=== PATIENT | female | born 1930 | race Caucasian/White ===

== ENCOUNTER → 2017-03-31 | Outpatient (CLI) | payer MEDICARE ==
[~2017-03-31] VITALS: Ht 167.6 cm; Wt 71.8 kg
[~2017-03-31] MED LIST: ACET-461 PO; ALN70T PO; ASCO500T20 PO; CALC-656 PO; CALC-80 PO; CLOP75TA PO; CSPT25 OU; DENOSUMAB 60 MG/1 ML (PROLIA) SQ ONE; DORZ10DR19; ESCI20TA2 PO; GLUC-174 PO; HYDR25TA4 PO; LISI10TA2 PO; MULT-974 PO; NABUMETONE 500MG PO; NAPR-686 PO; NF-SOLIF5T PO; NFAMINITAB PO; Stool Softner; TRAM-21 PO; TRAM50TA2 PO; TRAV5DRO OP; VIT1TABL26 PO
[2017-03-31 13:27] VITALS: BP 136/52
[2017-03-31 13:50] VITALS: BP 136/52
== END ==
LOC: SDC 13:01
PROVIDERS: ATTEND Family Medicine
DX: M81.0 Age-related osteoporosis without current pathological fracture (principal)
CPT/HCPCS: 96372

== ENCOUNTER 2017-04-14 06:03 | Inpatient (IN) | payer MEDICARE ==
[~2017-04-14] VITALS: Ht 165.1 cm; Wt 66.5 kg
[~2017-04-14 06:03] MED LIST changes: -DENOSUMAB 60 MG/1 ML (PROLIA) SQ ONE
[2017-04-14] MEDS ORDERED: hydrALAZINE (APESOLINE) 20 MG/ML VIAL IV ONE (06:15)
[2017-04-14 06:24] LABS: BASOPHILS % (AUTO) 0 % (0-10); EOSINOPHILS # (AUTO) 0.1 10^3/uL (0.0-0.3); EOSINOPHILS % (AUTO) 1 % (0-10); LYMPHOCYTES # (AUTO) 1.3 X 10^3 (1.0-4.0); LYMPHOCYTES % (AUTO) 19 % (12-44); MEAN CORPUSCULAR HEMOGLOBIN 29 PG (25-34); MEAN CORPUSCULAR HGB CONC 32 G/DL (32-36); MEAN CORPUSCULAR VOLUME 90 FL (80-99); MEAN PLATELET VOLUME 9.5 FL (7.4-10.4); MONOCYTES # (AUTO) 0.8 X 10^3 (0.0-1.0); MONOCYTES % (AUTO) 12 % (0-12); NEUTROPHILS # (AUTO) 4.8 X 10^3 (1.8-7.8); NEUTROPHILS % (AUTO) 68 % (42-75); PLATELET COUNT 279 10^3/uL (130-400); RED BLOOD COUNT 5.52 10^6/uL (4.35-5.85); RED CELL DISTRIBUTION WIDTH 14.5 % (10.0-14.5); WHITE BLOOD COUNT 7.1 10^3/uL (4.3-11.0)
[2017-04-14] MEDS ORDERED: ONDANSETRON 4 MG/2 ML (SDV) Z0FRAN ONE (06:28)
--- NOTE | 2017-04-14 06:29 | ED General ---
General Chief Complaint: Head/Cervical Problems Stated Complaint: headache, hypertension Nursing Triage Note: patient reports headache starting at 0430 with hypertension, patients daughter gave her a lisinopril and tylenol Nursing Sepsis Screen: No Definite Risk Source of Information: Patient, EMS Exam Limitations: No Limitations History of Present Illness Time Seen by Provider: 06:05 Initial Comments Here by EMS with report of headache and hypertension. Patient apparently fell 2 weeks ago but didn't have any sequela from that. Woke up with a headache this morning and ultimately her daughter checked her blood pressure and noted to the greater than 200 systolic. She did get 20 mg lisinopril as well as the Tylenol for her headache. EMS noted the patient felt a little warm. Patient does not describe any recent illness symptoms. Patient is very hard of hearing and not a great historian but denies any specific complaints except for headache. She denies hitting her head when she fell. Timing/Duration: 1-3 Hours Severity: Moderate, Severe Associated Systoms: No Chest Pain, No Cough, Fever/Chills, Headaches, No Nausea /Vomiting, No Shortness of Air, Weakness Allergies and Home Medications Allergies Coded Allergies: No Known Drug Allergies (Unverified , 01/18/14) Home Medications Acetaminophen 500 Mg Tablet, 1,000 MG PO TID-QID PRN for PAIN, (Reported) TAKES 2 (500MG) TABLETS Calcium Carbonate/Vitamin D3 1 Each Tablet, 1 EACH PO DAILY, (Reported) Clopidogrel Bisulfate 75 Mg Tablet, 1 EACH PO DAILY, (Reported) Escitalopram Oxalate 20 Mg Tablet, 0.5 EACH PO DAILY, (Reported) Gluc/Eleazar-MSM#1/C/Get/Caden/Bor 1 Each Tablet, 1 EACH PO DAILY, (Reported) Lisinopril 10 Mg Tablet, 10 MG PO DAILY, (Reported) Solifenacin Succinate 5 Mg Tablet, 5 MG PO HS, (Reported) Timolol Maleate/Dorzolam Hcl 5 Ml Btl, 1 DROP OU TID, (Reported) Tramadol Hcl 50 Mg Tablet, 50 MG PO QID PRN for PAIN, (Reported) NEEDED FOR PAIN Travoprost 5 Ml Drops, 1 DROP OP HS, (Reported) Vit A,C & E/Lutein/Minerals 1 Each Tablet, 1 EACH PO DAILY, (Reported) [Stool Softner] , (Reported) Constitutional: see HPI, No chills, fever, weakness EENTM: no symptoms reported Respiratory: No cough, No short of breath Cardiovascular: No chest pain, No edema, other (history of bradycardia with heart rates typically in the 40s.) Gastrointestinal: No abdominal pain, No nausea, No vomiting Genitourinary: no symptoms reported : No Musculoskeletal: no symptoms reported Skin: lesions (small skin tear and redness to the mid tibia area of the left leg.) Psychiatric/Neurological: Headache, Weakness Hematologic/Lymphatic: No Symptoms Reported All Other Systems Reviewed Negative Unless Noted: Yes Past Zuumfua-Mcmplo-Cunyzt Hx Patient Social History Alcohol Use: Denies Use Recreational Drug Use: No Smoking Status: Never a Smoker Recent Foreign Travel: No Contact w/Someone Who Travel: No Recent Infectious Disease Expo: No Recent Hopitalizations: No Immunizations Up To Date Date of Pneumonia Vaccine: Dec 21, 2009 Seasonal Allergies Seasonal Allergies: No Surgeries HX Surgeries: Yes (see Musculoskelatal assessment) Surgeries: Eye Surgery, Orthopedic Respiratory Hx Respiratory Disorders: No Cardiovascular Hx Cardiac Disorders: Yes Cardiac Disorders: Hypertension Neurological Hx Neurological Disorders: Yes Neurological Disorders: Dementia Reproductive System Hx Reproductive Disorders: No Sexually Transmitted Disease: No HIV/AIDS: No Female Reproductive Disorders: Denies Genitourinary Hx Genitourinary Disorders: No Gastrointestinal Hx Gastrointestinal Disorders: Yes Gastrointestinal Disorders: Chronic Constipation Musculoskeletal Hx Musculoskeletal Disorders: Yes (kyphoplasty l-spine 01/2014, pelvis fx, frequent falls) Musculoskeletal Disorders: Osteoporosis, Arthritis, Chronic Back Pain, Fractures Endocrine Hx Endocrine Disorders: Yes (History of hyponatremia) HEENT HX ENT Disorders: Yes (DETACHED RETINA REPAIR) HEENT Disorders: Glaucoma Hearing Impairment: Hard of Hearing, Hearing Aide Left Cancer Hx Cancer: No Psychosocial Hx Psychiatric Problems: No Integumentary HX Skin/Integumentary Disorder: No Blood Transfusions Hx Blood Disorders: No Adverse Reaction to a Blood Tr: No Reviewed Nursing Assessment Reviewed/Agree w Nursing PMH: Yes Family Medical History Significant Family History: No Pertinent Family Hx Family Medial History: Patient reports no known family medical history. Physical Exam-Suspected Sepsis Physical Exam Vital Signs Vital Sign - Last 12Hours 04/14/17 04/14/17 06:05 06:15 Temp 99.6 Pulse 45 Resp 17 B/P (MAP) 236/87 Pulse Ox 86 O2 Delivery Room Air O2 Flow Rate 3.00 Capillary Refill : Less Than 3 Seconds Blood Pressure Mean: 136 General Appearance: No Apparent Distress, WD/WN HEENT: PERRL/EOMI, Pharynx Normal Neck: Full Range of Motion, Non Tender, Supple Respiratory: Lungs Clear, Normal Breath Sounds Cardiovascular: No Murmur, Bradycardia Gastrointestinal: Non Tender, Soft Back: Normal Inspection, No CVA Tenderness, No Vertebral Tenderness Extremity: Non Tender, No Calf Tenderness Neurologic/Psychiatric: Alert, Oriented x3 Skin: warm/dry, other (appears to have a small skin tear to the left mid tibia region anteriorly of the left lower leg with surrounding erythema.) Focused Exam Lactic Acid Level Laboratory Tests Test 04/14/17 06:15 Lactic Acid Level 1.18 MMOL/L (0.50-2.00) Progress/Results/Core Measures Suspected Sepsis Recent Fever Within 48 Hours: No Infection Criteria Present: None New/Unexplained Altered Menta: No Sepsis Screen: No Definite Risk Sepsis Diagnosis: SIRS Temperature:99.6 Pulse: 45 Respiratory Rate: 17 Laboratory Tests 04/14/17 06:15: White Blood Count 7.1 Blood Pressure 236 /87 Mean: 136 Laboratory Tests 04/14/17 06:15: Creatinine 0.78, INR Comment 1.0, Platelet Count 279, Total Bilirubin 1.1H Results/Orders Lab Results Laboratory Tests Test 04/14/17 06:15 04/14/17 07:15 Range/Units White Blood Count 7.1 4.3-11.0 10^3/uL Red Blood Count 5.52 4.35-5.85 10^6/uL Hemoglobin 15.9 11.5-16.0 G/DL Hematocrit 49 35-52 % Mean Corpuscular Volume 90 80-99 FL Mean Corpuscular Hemoglobin 29 25-34 PG Mean Corpuscular Hemoglobin Concent 32 32-36 G/DL Red Cell Distribution Width 14.5 10.0-14.5 % Platelet Count 279 130-400 10^3/uL Mean Platelet Volume 9.5 7.4-10.4 FL Neutrophils (%) (Auto) 68 42-75 % Lymphocytes (%) (Auto) 19 12-44 % Monocytes (%) (Auto) 12 0-12 % Eosinophils (%) (Auto) 1 0-10 % Basophils (%) (Auto) 0 0-10 % Neutrophils # (Auto) 4.8 1.8-7.8 X 10^3 Lymphocytes # (Auto) 1.3 1.0-4.0 X 10^3 Monocytes # (Auto) 0.8 0.0-1.0 X 10^3 Eosinophils # (Auto) 0.1 0.0-0.3 10^3/uL Basophils # (Auto) 0.0 0.0-0.1 10^3/uL Prothrombin Time 12.8 12.2-14.7 SEC INR Comment 1.0 0.8-1.4 Activated Partial Thromboplast Time 26 24-35 SEC Sodium Level 129 L 135-145 MMOL/L Potassium Level 4.7 3.6-5.0 MMOL/L Chloride Level 93 L 98-107 MMOL/L Carbon Dioxide Level 25 21-32 MMOL/L Anion Gap 11 5-14 MMOL/L Blood Urea Nitrogen 14 7-18 MG/DL Creatinine 0.78 0.60-1.30 MG/DL Estimat Glomerular Filtration Rate > 60 BUN/Creatinine Ratio 18 Glucose Level 114 H 70-105 MG/DL Lactic Acid Level 1.18 0.50-2.00 MMOL/L Calcium Level 9.1 8.5-10.1 MG/DL Total Bilirubin 1.1 H 0.1-1.0 MG/DL Aspartate Amino Transf (AST/SGOT) 23 5-34 U/L Alanine Aminotransferase (ALT/SGPT) 16 0-55 U/L Alkaline Phosphatase 126 40-136 U/L Troponin I < 0.30 <0.30 NG/ML Total Protein 8.1 6.4-8.2 GM/DL Albumin 4.0 3.2-4.5 GM/DL Urine Color YELLOW Urine Clarity CLEAR Urine pH 8 5-9 Urine Specific [place] 1.015 L 1.016-1.022 Urine Protein 3+ H NEGATIVE Urine Glucose (UA) NEGATIVE NEGATIVE Urine Ketones NEGATIVE NEGATIVE Urine Nitrite NEGATIVE NEGATIVE Urine Bilirubin NEGATIVE NEGATIVE Urine Urobilinogen NORMAL NORMAL MG/DL Urine Leukocyte Esterase 1+ H NEGATIVE Urine RBC (Auto) 2+ H NEGATIVE Urine RBC NONE /HPF Urine WBC 5-10 H /HPF Urine Squamous Epithelial Cells 5-10 /HPF Urine Crystals NONE /LPF Urine Bacteria FEW H /HPF Urine Casts NONE /LPF Urine Mucus NEGATIVE /LPF Urine Other RARE TRANS EPI /HPF Urine Culture Indicated YES My Orders Orders - KIM TORRES MD Cbc With Automated Diff (04/14/17 06:13) Comprehensive Metabolic Panel (04/14/17 06:13) Lactic Acid Analyzer (04/14/17 06:13) Blood Culture (04/14/17 06:13) Sputum Culture (04/14/17 06:13) Ua Culture If Indicated (04/14/17 06:13) Protime With Inr (04/14/17 06:13) Partial Thromboplastin Time (04/14/17 06:13) Chest 1 View, Ap/Pa Only (04/14/17 06:13) O2 (04/14/17 06:13) Saline Lock/Iv-Start (04/14/17 06:13) Saline Lock/Iv-Start (04/14/17 06:13) Ekg Tracing (04/14/17 06:13) Troponin I (04/14/17 06:13) Vital Signs Adult Sepsis Patie Q1HR (04/14/17 06:13) Remove Rings In Anticipation O (04/14/17 06:13) Hydralazine Injection (Apresoline Inject (04/14/17 06:15) Ct Head Wo (04/14/17 06:13) Ondansetron Injection (Zofran Injectio (04/14/17 06:28) Ondansetron Injection (Zofran Injectio (04/14/17 06:45) Ondansetron Injection (Zofran Injectio (04/14/17 06:45) Ns Iv 500 Ml (Sodium Chloride 0.9%) (04/14/17 06:52) Ketorolac Injection (Toradol Injection) (04/14/17 07:21) Ketorolac Injection (Toradol Injection) (04/14/17 07:17) Urine Culture (04/14/17 07:15) BNP (04/14/17 07:56) Ceftriaxone Injection (Rocephin Injectio (04/14/17 08:00) Medications Given in ED Current Medications Medications Dose Ordered Sig/Yolanda Route Start Time Stop Time Status Last Admin Dose Admin Hydralazine HCl 20 mg ONCE ONCE IV 04/14/17 06:15 04/14/17 06:16 DC 04/14/17 06:18 20 MG Ondansetron HCl 4 mg ONCE ONCE IVP 04/14/17 06:45 04/14/17 06:46 DC 04/14/17 06:36 4 MG Sodium Chloride 500 ml @ 0 mls/hr Q0M ONCE IV 04/14/17 06:52 04/14/17 06:53 DC 04/14/17 07:00 500 MLS/HR Vital Signs/I&O Vital Sign - Last 12Hours 04/14/17 04/14/17 06:05 06:15 Temp 99.6 Pulse 45 Resp 17 B/P (MAP) 236/87 Pulse Ox 86 93 O2 Delivery Room Air Nasal Cannula O2 Flow Rate 3.00 Capillary Refill : Less Than 3 Seconds Blood Pressure Mean: 136 Progress Note : Progress Note Seen and evaluated. IV established by EMS. Labs, blood culture, lactic acid, UA, chest x-ray and CT head ordered. EKG ordered due to bradycardia and hypertension. Hydralazine 20 mg IV given. Monitor patient. This did improve her blood pressure. UA obtained via straight catheter. UTI noted. Rocephin 1 g IV ordered. Chest x-ray noted. BNP added. Patient not tolerating being off oxygen and has O2 sat 87 percent on room air and 92 percent on 2 L via nasal cannula. I did discuss the case with Dr. Negrete at 0803. She accepts patient for admission, inpatient status. Patient and family agree with plan. ECG Initial ECG Impression Date: Apr 14, 2017 Initial ECG Impression Time: 07:09 Initial ECG Rate: 53 Initial ECG Rhythm: Normal Sinus Comment Sinus rhythm with bradycardia. Left axis deviation. No evidence of ST elevation WI. Similar to previous of 03/03/15. Interpreted by me. Diagnostic Imaging Diagonstic Imaging: CT Plain Films/CT/US/NM/MRI: head Comments No midline shift, hemorrhage or CT evidence of acute cortical infarct. Ventricular size concert with volume loss. No depressed calvarial fractures. Incidental findings noted. Reviewed: Reviewed [place] Study, Reviewed by Me Diagonstic Imaging: Xray Plain Films/CT/US/NM/MRI: chest Comments NAME: [facility] REC#: [id number] PT STATUS: PRE ER : 1930 PHYSICIAN: KIM TORRES MD ADMIT DATE: 04/14/17/ER Draft Date of Exam:04/14/17 CHEST 1 VIEW, AP/PA ONLY EXAM: CHEST 1 VIEW, AP/PA ONLY INDICATION: Hypertension. COMPARISON: Chest radiographs 03/03/2015. FINDINGS: Cardiomegaly and increased pulmonary venous congestion. Low lung volumes. Increased atelectasis in the lung bases. No definite pleural effusion or pneumothorax. The previously described opacity overlying the right midlung is not seen on today's exam. Advanced degenerative changes in both shoulders. Calcified aorta. IMPRESSION: 1. Persistent cardiomegaly and pulmonary venous congestion. 2. Low lung volumes with increased atelectasis in the lung bases. Dictated on workstation # [id number] Dict: 04/14/17 0749 Trans: 04/14/17 0753 [facility] [id number] Interpreted by: MILES LUCAS MD Electronically signed by: Reviewed: Reviewed by Me Departure Communication Time/Spoke to Admitting Phy: 08:03 Impression Impression: Primary Impression: Malignant hypertension Additional Impressions: Hypoxia Pulmonary edema Qualified Codes: J81.0 - Acute pulmonary edema Urinary tract infection Qualified Codes: N30.00 - Acute cystitis without hematuria Disposition: 09 ADMITTED INPATIENT Condition: Stable Decision to Admit Reason: Admit from ER (General) Decision to Admit/Date: Apr 14, 2017 Time/Decision to Admit Time: 08:03 Departure-Patient Inst. Referrals: JOYCE NEGRETE MD (PCP/Family) Primary Care Physician KIM TORRES MD Apr 14, 2017 06:29
[2017-04-14 06:34] LABS: PROTHROMBIN TIME PATIENT 12.8 SEC (12.2-14.7)
[2017-04-14] MEDS ORDERED: ONDANSETRON 4 MG/2 ML (SDV) Z0FRAN IVP ONE ×2 (06:45)
[2017-04-14 06:51] LABS: ALANINE AMINOTRANSFERASE 16 U/L (0-55); ANION GAP 11 MMOL/L (5-14); ASPARTATE AMINO TRANSFERASE 23 U/L (5-34); BILIRUBIN,TOTAL 1.1 MG/DL (0.1-1.0); BLOOD UREA NITROGEN 14 MG/DL (7-18); BUN/CREATININE RATIO 18; CALCIUM 9.1 MG/DL (8.5-10.1); CARBON DIOXIDE 25 MMOL/L (21-32); CHLORIDE 93 MMOL/L (98-107); CREATININE SERUM 0.78 MG/DL (0.60-1.30); GFR ESTIMATED > 60; GLUCOSE 114 MG/DL (70-105); POTASSIUM 4.7 MMOL/L (3.6-5.0); SODIUM 129 MMOL/L (135-145); TOTAL PROTEIN 8.1 GM/DL (6.4-8.2)
[2017-04-14] MEDS ORDERED: NS IV 500 ML 500 ML IV ONE (06:52)
[2017-04-14 07:00] LABS: TROPONIN I < 0.30 NG/ML (<0.30)
[2017-04-14] MEDS ORDERED: KETOROLAC 30 MG/ML VIAL ONE (07:17)
[2017-04-14] MEDS ORDERED: KETOROLAC 30 MG/ML VIAL IVP STA (07:21)
[2017-04-14 07:26] LABS: BILIRUBIN,URINE NEGATIVE (NEGATIVE); KETONES,URINE NEGATIVE (NEGATIVE); LEUKOCYTE ESTERASE ,URINE 1+ (NEGATIVE); NITRITE,URINE NEGATIVE (NEGATIVE); PH,URINE 8 (5-9); PROTEIN,URINE 3+ (NEGATIVE); UROBILINOGEN,URINE NORMAL (NORMAL)
--- NOTE | 2017-04-14 07:53 | Diagnostic Imaging Report ---
EXAM: CHEST 1 VIEW, AP/PA ONLY INDICATION: Hypertension. COMPARISON: Chest radiographs 03/03/2015. FINDINGS: Cardiomegaly and increased pulmonary venous congestion. Low lung volumes. Increased atelectasis in the lung bases. No definite pleural effusion or pneumothorax. The previously described opacity overlying the right midlung is not seen on today's exam. Advanced degenerative changes in both shoulders. Calcified aorta. IMPRESSION: 1. Persistent cardiomegaly and pulmonary venous congestion. 2. Low lung volumes with increased atelectasis in the lung bases. Dictated by: Dictated on workstation # [id number]
--- NOTE | 2017-04-14 07:55 | Diagnostic Imaging Report ---
PROCEDURE: CT head without contrast. TECHNIQUE: Multiple contiguous axial images were obtained through the brain without the use of intravenous contrast. INDICATION: Headache. COMPARISON: CT head without contrast 03/12/2014. FINDINGS: No intracranial hemorrhage, mass effect, hydrocephalus or extra-axial fluid collections. No CT evidence of acute infarction. Vascular calcifications. Advanced generalized cerebral and cerebellar parenchymal volume loss. Advanced leukoaraiosis. Postoperative changes in the orbits. Opacification of left sphenoid sinus. The mastoids are clear. Osseous structures are intact. IMPRESSION: 1. No acute intracranial CT findings. 2. Opacification of left sphenoid sinus. Dictated by: Dictated on workstation # [id number]
[2017-04-14] MEDS ORDERED: cefTRIAXone INJECTION 1,000 MG in NS (IVPB) 50 ML IV ONE ×2 (08:00→10:15)
--- NOTE | 2017-04-14 08:52 | History & Physicial ---
History of Present Illness History of Present Illness Reason for visit/HPI PT IS AN 86 Y/O FEMALE WHO IS KNOWN TO ME FROM CLINIC. SHE PRESENTED TO THE EMERGENCY DEPARTMENT THIS MORNING WITH FEELING POORLY, HEADACHE, WEAKNESS, AND ELEVATED BLOOD PRESSURE. SHE HAD A BLOOD PRESSURE OF OVER 200/100 ON PRESENTATION TO THE EMERGENCY DEPARTMENT. UPON MY EVALUATION OF THE PATIENT THIS MORNING, SHE STATES THAT SHE FEELS BAD WITH A HEADACHE, SHE DENIES DIZZINESS, CHEST PAIN, SHORTNESS OF BREATH. Date of Admission Apr 14, 2017 at 08:23 Time Seen by Provider: 09:45 I consulted on this patient on 04/14/17 08:50 Attending Physician Joyce Negrete MD Admitting Physician Joyce Negrete MD Consult Allergies and Home Medications Allergies Coded Allergies: No Known Drug Allergies (Unverified , 01/18/14) Home Medications Acetaminophen 500 Mg Tablet, 1,000 MG PO TID-QID PRN for PAIN, (Reported) TAKES 2 (500MG) TABLETS Calcium Carbonate/Vitamin D3 1 Each Tablet, 1 EACH PO DAILY, (Reported) Clopidogrel Bisulfate 75 Mg Tablet, 1 EACH PO DAILY, (Reported) Escitalopram Oxalate 20 Mg Tablet, 0.5 EACH PO DAILY, (Reported) Gluc/Eleazar-MSM#1/C/Get/Caden/Bor 1 Each Tablet, 1 EACH PO DAILY, (Reported) Lisinopril 10 Mg Tablet, 10 MG PO DAILY, (Reported) Solifenacin Succinate 5 Mg Tablet, 5 MG PO HS, (Reported) Timolol Maleate/Dorzolam Hcl 5 Ml Btl, 1 DROP OU TID, (Reported) Tramadol Hcl 50 Mg Tablet, 50 MG PO QID PRN for PAIN, (Reported) NEEDED FOR PAIN Travoprost 5 Ml Drops, 1 DROP OP HS, (Reported) Vit A,C & E/Lutein/Minerals 1 Each Tablet, 1 EACH PO DAILY, (Reported) [Stool Softner] , (Reported) Past Zlzzffc-Sxqaxv-Xchwkn Hx Patient Social History Marrital Status: Living Status: LIVES WITH HER DAUGHTER Employed/Student: retired Alcohol Use: Denies Use Recreational Drug Use: No Smoking Status: Never a Smoker 2nd Hand Smoke Exposure: No Physical Abuse Screen: No Sexual Abuse: No Recent Foreign Travel: No Contact w/other who traveled: No Recent Hopitalizations: No Recent Infectious Disease Expo: No Immunizations Up To Date Date of Pneumonia Vaccine: Dec 21, 2009 Seasonal Allergies Seasonal Allergies: No Surgeries HX Surgeries: Yes (see Musculoskelatal assessment) Surgeries: Eye Surgery, Orthopedic Respiratory Hx Respiratory Disorders: No Cardiovascular Hx Cardiovascular Disorders: Yes Cardiac Disorders: Hypertension Neurological Hx Neurological Disorders: Yes Neurological Disorders: Dementia Reproductive System : No Hx Reproductive Disorders: No Sexually Transmitted Disease: No HIV/AIDS: No Female Reproductive Disorders: Denies Genitourinary Hx Genitourinary Disorders: No Gastrointestinal Hx Gastrointestinal Disorders: Yes Gastrointestinal Disorders: Chronic Constipation Musculoskeletal Hx Musculoskeletal Disorders: Yes (kyphoplasty l-spine 01/2014, pelvis fx, frequent falls) Musculoskeletal Disorders: Osteoporosis, Arthritis, Chronic Back Pain, Fractures Endocrine Hx Endocrine Disorders: Yes (History of hyponatremia) HEENT HX ENT Disorders: Yes (DETACHED RETINA REPAIR) HEENT Disorders: Glaucoma Loss of Vision: Denies Hearing Impairment: Hard of Hearing, Hearing Aide Left Cancer Hx Cancer: No Psychosocial Hx Psychiatric Problems: No Integumentary HX Skin/Integumentary Disorder: No Blood Transfusions Hx Blood Disorders: No Adverse Reaction to a Blood Tr: No Reviewed Nursing Assessment Reviewed/Agree w Nursing PMH: Yes Family Medical History Significant Family History: No Pertinent Family Hx Family Hx: Patient reports no known family medical history. Constitutional: No chills, No diaphoresis, No fever, weakness EENTM: hearing loss, No hoarseness, No throat pain Respiratory: cough, dyspnea on exertion Cardiovascular: No chest pain, No edema, No palpitations Gastrointestinal: No abdominal pain, No constipation, No diarrhea, No nausea, No vomiting Genitourinary: No decreased output Musculoskeletal: No back pain, muscle weakness Skin: No change in color, other (HEALING SORE ON LOWER LEFT ANTERIOR LEG) Psychiatric/Neurological: Anxiety, Depressed, Headache, Weakness All Other Systems Reviewed Negative Unless Noted: Yes Physical Exam Vital Signs Vital Sign - Last 12Hours 04/14/17 04/14/17 06:05 06:15 Temp 99.6 Pulse 45 Resp 17 B/P (MAP) 236/87 Pulse Ox 86 O2 Delivery Room Air O2 Flow Rate 3.00 Capillary Refill : Less Than 3 Seconds General Appearance: No Apparent Distress, WD/WN Eyes: Bilateral Eye Normal Inspection HEENT: PERRL/EOMI, Pharynx Normal Neck: Full Range of Motion, Supple Respiratory: Chest Non Tender, Lungs Clear, Normal Breath Sounds, No Accessory Muscle Use, No Respiratory Distress Cardiovascular: No Edema, Bradycardia Gastrointestinal: Normal Bowel Sounds, Soft Rectal: Deferred Back: No CVA Tenderness Extremity: Non Tender, No Calf Tenderness, No Pedal Edema Neurologic/Psychiatric: Alert, Oriented x3, No Motor/Sensory Deficits, Normal Mood/Affect Skin: Normal Color, Warm/Dry Lymphatic: No Adenopathy Assessment/Plan Assessment and Plan HYPERTENSIVE URGENCY URINARY TRACT INFECTION PNEUMONIA WEAKNESS HEADACHE DEPRESSION ANXIETY HYPERTENSIVE URGENCY - ORAL ANTIHYPERTENSIVES - MONITOR SYMPTOMS OF HYPERTENSION -MAY NEED TO ADD ADDITIONAL ORAL ANTIHYPERTENSIVES. URINARY TRACT INFECTION - PT STARTED ON ROCEPHIN, MONITOR URINE CULTURE. PNEUMONIA - CHECK CXR TOMORROW - STARTED ON ROCEPHIN AND AZITHROMYCIN. WEAKNESS - WILL START PHYSICAL THERAPY TOMORROW. HEADACHE - IMPROVED AFTER TYLENOL AND HYPERTENSIVE CONTROL. DEPRESSION - RESTARTED SSRI - PT TAKES LEXAPRO AT HOME, SWITCHED TO HOSPITAL FORMULARY - CELEXA. ANXIETY - ATIVAN PRN IN HOSPITAL. GI PROPHYLAXIS - WILL START PEPCID DVT PROPHYLAXIS - STARTED LOVENOX AND SCD'S Problems: Admission Diagnosis HYPERTENSIVE URGENCY URINARY TRACT INFECTION PNEUMONIA WEAKNESS HEADACHE DEPRESSION ANXIETY JOYCE NEGRETE MD Apr 14, 2017 08:52
[2017-04-14] MEDS ORDERED: lisINopril 20 MG (ZESTRIL) TAB PO SCH (09:34)
[2017-04-14 09:40] VITALS: BP 170/72
[2017-04-14] MEDS ORDERED: CATHETER FLUSH 10 ML SYR IV PRN (09:45)
[2017-04-14] MEDS ORDERED: lisINopril 20 MG (ZESTRIL) TAB PO ONE (10:15)
[2017-04-14] MEDS ORDERED: RT-ALBUTEROL SULF 2.5 MG/3 ML PRE-MIX VIAL IH PRN (10:15)
[2017-04-14] MEDS ORDERED: LORazepam 0.5 MG (ATIVAN) TABLET PO PRN (10:45)
[2017-04-14] MEDS: ENOXAPARIN 40 MG/0.4 ML (LOVENOX) SYR SC SCH (10:53)
[2017-04-14] MEDS: AZITHROMYCIN INJECTION 500 MG in NS (IVPB) 250 ML IV NR (10:53)
[2017-04-14] MEDS: NS IV 1000 ML 1,000 ML IV SCH (10:54)
[2017-04-14] MEDS: RT-ALBUTEROL SULF 2.5 MG/3 ML PRE-MIX VIAL IH SCH ×3 (11:05→19:50)
[2017-04-14 12:00] VITALS: BP 157/70
[2017-04-14] MEDS: ACETAMINOPHEN 500 MG TAB (TYLENOL) PO PRN ×2 (12:06→23:54)
[2017-04-14] MEDS ORDERED: PROP10DR9 OS (15:34)
[2017-04-14] MEDS ORDERED: ACET-2422 PO (15:34)
[2017-04-14] MEDS ORDERED: TRAV5DRO OU (15:34)
[2017-04-14] MEDS ORDERED: VIT1CAPS44 PO (15:34)
[2017-04-14] MEDS ORDERED: ASCO500T6 PO (15:34)
[2017-04-14] MEDS ORDERED: DICL100G18 TP (15:34)
[2017-04-14] MEDS ORDERED: METH35.42 TP (15:34)
[2017-04-14] MEDS ORDERED: CHOL20003 PO (15:34)
[2017-04-14] MEDS ORDERED: ESCI20TA45 PO (15:34)
[2017-04-14] MEDS ORDERED: DENO60DI SQ (15:34)
[2017-04-14] MEDS ORDERED: LISI-552 PO (15:34)
[2017-04-14] MEDS ORDERED: DOCU100C37 PO (15:34)
[2017-04-14] MEDS ORDERED: CLOP75TA28 PO (15:34)
[2017-04-14] MEDS ORDERED: BRIM5DRO OD (15:34)
[2017-04-14 15:45] VITALS: BP 146/67
[2017-04-14] MEDS ORDERED: DOCUSATE SODIUM 100 MG (COLACE) CAP PO PRN (18:15)
[2017-04-14] MEDS ORDERED: DICLOFENAC 1% GEL 100 GM (VOLTAREN) TUBE TP PRN (18:15)
[2017-04-14 19:25] VITALS: BP 148/64
[2017-04-14] MEDS: CATHETER FLUSH 10 ML SYR IV SCH ×2 (19:52→21:05)
[2017-04-14] MEDS: ARTIFICAL TEARS 0.4 ML UNIT DOSE (REFRESH PLUS) OS SCH ×2 (20:00→21:02)
[2017-04-14] MEDS: TROSPIUM 20 MG (SANCTURA) TAB PO SCH (20:00)
[2017-04-14] MEDS ORDERED: NON-FORMULARY MEDICATION 1 EA EA (Brimonidine Tartrate/Timolol (Combigan Eye Drops) 1 DROP OD SCH (21:00)
[2017-04-14] MEDS ORDERED: NON-FORMULARY MEDICATION 1 EA EA (Escitalopram Oxalate 20 MG) PO SCH (21:00)
[2017-04-14] MEDS: LATANOPROST 0.005% (XALATAN) OPHTH SOLN 2.5 ML OU SCH (21:04)
[2017-04-15] VITALS (7 sets, daily range): BP systolic 148–189; BP diastolic 65–87
[2017-04-15] MEDS: NS IV 1000 ML 1,000 ML IV SCH ×2 (03:24→15:15)
[2017-04-15 05:09] LABS: RED BLOOD COUNT 4.6 10^6/uL (4.35-5.85); RED CELL DISTRIBUTION WIDTH 14.8 % (10.0-14.5); WHITE BLOOD COUNT 5.2 10^3/uL (4.3-11.0)
[2017-04-15 05:41] LABS: ALANINE AMINOTRANSFERASE 13 U/L (0-55); ALBUMIN 3.3 GM/DL (3.2-4.5); ANION GAP 11 MMOL/L (5-14); ASPARTATE AMINO TRANSFERASE 14 U/L (5-34); BILIRUBIN,TOTAL 0.7 MG/DL (0.1-1.0); BLOOD UREA NITROGEN 15 MG/DL (7-18); BUN/CREATININE RATIO 21; CALCIUM 7.6 MG/DL (8.5-10.1); CARBON DIOXIDE 21 MMOL/L (21-32); CHLORIDE 99 MMOL/L (98-107); CREATININE SERUM 0.73 MG/DL (0.60-1.30); GFR ESTIMATED > 60; GLUCOSE 90 MG/DL (70-105); SODIUM 131 MMOL/L (135-145); TOTAL PROTEIN 6.2 GM/DL (6.4-8.2)
[2017-04-15] MEDS: CATHETER FLUSH 10 ML SYR IV SCH ×3 (06:08→20:39)
[2017-04-15] MEDS: TROSPIUM 20 MG (SANCTURA) TAB PO SCH ×2 (06:11→15:34)
[2017-04-15] MEDS: RT-ALBUTEROL SULF 2.5 MG/3 ML PRE-MIX VIAL IH SCH ×4 (06:53→19:21)
--- NOTE | 2017-04-15 08:20 | Progress Note (SOAP) ---
Subjective Date Seen by Provider: Apr 15, 2017 Time Seen by Provider: 08:30 Subjective/Events-last exam PT IS AN 86 Y/O FEMALE WHO IS KNOWN TO ME FROM CLINIC. SHE PRESENTED TO THE HOSPITAL WITH HYPONATREMIA, HYPERTENSIVE URGENCY, PNEUMONIA. SHE HAD A FEW ELEVATED BLOOD PRESSURE READINGS OVER NIGHT LAST NIGHT. TODAY SHE STATES THAT SHE FEELS... Objective Exam Vital Signs Date Time Temp Pulse Resp B/P (MAP) Pulse Ox O2 Delivery O2 Flow Rate FiO2 04/15/17 07:01 94 Nasal Cannula 6.00 04/15/17 04:28 97.8 53 20 177/76 93 Nasal Cannula 6.00 04/15/17 01:26 97.3 60 20 148/72 93 Nasal Cannula 6.00 04/15/17 01:00 55 04/15/17 00:00 97.3 60 19 189/65 93 Nasal Cannula 6.00 04/14/17 21:00 Nasal Cannula 6.00 04/14/17 19:50 94 Nasal Cannula 6.00 04/14/17 19:25 99.9 51 19 148/64 92 Nasal Cannula 6.00 04/14/17 19:00 43 04/14/17 15:45 99.5 55 18 146/67 93 Nasal Cannula 6.00 04/14/17 15:14 90 Nasal Cannula 6.00 04/14/17 12:00 100.3 52 16 157/70 93 Nasal Cannula 2.00 04/14/17 12:00 100.3 52 16 157/70 93 Nasal Cannula 2.00 04/14/17 11:05 92 Nasal Cannula 6.00 04/14/17 09:58 88 Nasal Cannula 2.00 04/14/17 09:58 88 04/14/17 09:40 100.6 52 20 170/72 93 Nasal Cannula 2.00 04/14/17 09:30 Nasal Cannula 2.00 04/14/17 08:37 99.4 56 18 94 Nasal Cannula 2.00 I & O 04/15/17 07:00 Intake Total 2240 ml Output Total 350 ml Balance 1890 ml Capillary Refill : Less Than 3 SecondsLess Than 3 Seconds General Appearance: No Apparent Distress, WD/WN HEENT: PERRL/EOMI Neck: Full Range of Motion Respiratory: Chest Non Tender, Crackles, Decreased Breath Sounds Cardiovascular: Regular Rate, Rhythm Gastrointestinal: normal bowel sounds, non tender, soft Extremity: Pedal Edema (TRACE) Neurologic/Psychiatric: Alert, Other (ORIENTED TO PERSON) Skin: Warm/Dry Lymphatic: No Adenopathy Results Lab Laboratory Tests 04/15/17 04:11: White Blood Count 5.2, Red Blood Count 4.60, Hemoglobin 13.4, Hematocrit 42, Mean Corpuscular Volume 92, Mean Corpuscular Hemoglobin 29, Mean Corpuscular Hemoglobin Concent 32, Red Cell Distribution Width 14.8H, Platelet Count 196, Mean Platelet Volume 10.0, Sodium Level 131L, Potassium Level 4.0, Chloride Level 99, Carbon Dioxide Level 21, Anion Gap 11, Blood Urea Nitrogen 15, Creatinine 0.73, Estimat Glomerular Filtration Rate > 60, BUN/Creatinine Ratio 21, Glucose Level 90, Calcium Level 7.6L, Total Bilirubin 0.7, Aspartate Amino Transf (AST/SGOT) 14, Alanine Aminotransferase (ALT/SGPT) 13, Alkaline Phosphatase 95, Total Protein 6.2L, Albumin 3.3 Assessment/Plan Assessment/Plan Assess & Plan/Chief Complaint HYPERTENSIVE URGENCY URINARY TRACT INFECTION PNEUMONIA WEAKNESS HEADACHE DEPRESSION ANXIETY HYPERTENSIVE URGENCY - ORAL ANTIHYPERTENSIVES - MONITOR SYMPTOMS OF HYPERTENSION -MAY NEED TO ADD ADDITIONAL ORAL ANTIHYPERTENSIVES. URINARY TRACT INFECTION - PT STARTED ON ROCEPHIN, MONITOR URINE CULTURE. PNEUMONIA - STARTED ON ROCEPHIN AND AZITHROMYCIN ON 04/14/17. WEAKNESS - PHYSICAL THERAPY STARTED ON 04/15/17 HEADACHE - IMPROVED AFTER TYLENOL AND HYPERTENSIVE CONTROL. DEPRESSION - RESTARTED SSRI - PT TAKES LEXAPRO AT HOME, SWITCHED TO HOSPITAL FORMULARY - CELEXA. ANXIETY - ATIVAN PRN IN HOSPITAL. GI PROPHYLAXIS - PEPCID DVT PROPHYLAXIS - STARTED LOVENOX AND SCD'S Clinical Quality Measures DVT/VTE Risk/Contraindication: Risk Factor Score Per Nursin RFS Level Per Nursing on Admit: 4+=Very High JOYCE BARNES MD Apr 15, 2017 08:20
[2017-04-15] MEDS: cefTRIAXone 1 GM/NS 50 ML IVPB IV SCH ×2 (08:57)
[2017-04-15] MEDS: CLOPIDOGREL 75 MG (PLAVIX) TABLET PO SCH (08:58)
[2017-04-15] MEDS: lisINopril 20 MG (ZESTRIL) TAB PO SCH (08:58)
[2017-04-15] MEDS: TIMOLOL MALEATE 0.5% 5 ML (TIMOPTIC) BTL OU SCH ×2 (08:59→20:38)
[2017-04-15] MEDS: BRIMONIDINE 0.2% (ALPHAGAN) OPHTH SOLN 5 ML BTL OU SCH ×2 (08:59→20:38)
[2017-04-15] MEDS ORDERED: CLOPIDOGREL 75 MG (PLAVIX) TABLET PO SCH (09:00)
[2017-04-15] MEDS ORDERED: cefTRIAXone INJECTION 1,000 MG in NS (IVPB) 50 ML IV SCH (09:00)
[2017-04-15] MEDS ORDERED: AZITHROMYCIN INJECTION 250 MG in NS (IVPB) 250 ML IV SCH (09:00)
[2017-04-15] MEDS ORDERED: lisINopril 20 MG (ZESTRIL) TAB PO SCH (09:00)
[2017-04-15] MEDS: ENOXAPARIN 40 MG/0.4 ML (LOVENOX) SYR SC SCH (09:05)
[2017-04-15] MEDS ORDERED: LORazepam INJ 2 MG/ML (ATIVAN) VIAL IVP PRN (09:15)
[2017-04-15] MEDS ORDERED: AZITHROMYCIN 500 MG (ZITHROMAX) VIAL ONE (10:00)
[2017-04-15] MEDS ORDERED: NS IV 500 ML 0 ML ONE (10:00)
[2017-04-15] MEDS ORDERED: NS (IVPB) 250 ML ONE (10:03)
[2017-04-15] MEDS: AZITHROMYCIN INJECTION 500 MG in NS (IVPB) 250 ML IV NR (10:09)
--- NOTE | 2017-04-15 10:22 | Physical Therapy Evaluation ---
PT Evaluation-General Medical Diagnosis Admission Date Apr 14, 2017 at 08:23 Medical Diagnosis: CAMERON/HTN Onset Date: Apr 14, 2017 Therapy Diagnosis Therapy Diagnosis: generalized weakness/debility Height/Weight Height (Feet): 5 Height (Inches): 5.00 Weight (Pounds): 146 Weight (Ounces): 8.0 Precautions Precautions/Isolations: Fall Prevention, Standard Precautions Referral Physician: Caden Reason for Referral: Evaluation/Treatment Medical History Pertinent Medical History: Arthritis, Dementia (severe), HTN Additional Medical History fall 2 wks ago at home Current History ED secondary to elevated BP and c/o CAMERON Hypoxia Reviewed History: Yes Social History Home: Single Level Current Living Status: Children Entry Into Home: Stairs With Railing PT Steps Into Home: 3 Prior/Core FIM Prior Level of Function Functional [place] Measure 0=Not Assessed/NA 4=Minimal Assistance 1=Total Assistance 5=Supervision or Setup 2=Maximal Assistance 6=Modified [place] 3=Moderate Assistance 7=Complete [place] Bed Mobility: 5 Transfers (B,C,W/C) (FIM): 5 Gait: 5 family assist with all ADL's and activity PT Evaluation-Current Subjective Patient has severe dementia. Family agrees to PT. Pain Numeric Pain Scale: 0-No Pain Location: No Pain Reported Objective Patient Orientation: Confused Problem Solving: Poor Attachments: Oxygen (5-6L NC), IV ROM/Strength ROM Lower Extremities bilateral LE WNL Strenght Lower Extremities bilateral LE WNL Integumentary/Posture Integumentary refer to nursing notes Bowel Incontinence: No Bladder Incontinence: No Posture WNL Neuromuscular (Tone, Coordination, Reflexes) diminished coordination due to age and dementia/sensation intact grossly Sensory Vision: Wears Glasses Hearing: Impaired Sensation Right Lower Extremit: Intact Sensation Left Lower Extremity: Intact Transfers Functional [place] Measure 0=Not Assessed/NA 4=Minimal Assistance 1=Total Assistance 5=Supervision or Setup 2=Maximal Assistance 6=Modified [place] 3=Moderate Assistance 7=Complete [place] Transfers (B, C, W/C) (FIM): 4 Scootin Sit to/from Stand: 4 CGA with use of gait belt for safety Gait Mode of Locomotion: Walk Anticipated Mode of Locomotion: Walk Gait (FIM): 4 Distance (FIM): 3=150 ft Distance: 225' Gait Level of Assist: 4 Gait Persons Needed: 1 Gait Assistive Device: FWW Comments/Gait Description functional gait sequence with FWW Balance Sitting Static: Normal Sitting Dynamic: Normal Standing Static: Normal Standing Dynamic: Normal Assessment/Needs 86 y.o. female, will benefit from short term skilled PT to address functional mobility to ensure safe return to home with family. Due to dementia, less stimuli is recommended due to increase agitation with increased stimuli. Family agree. Rehab Potential: Fair PT Intermediate Goals Cloth Winding Supervisor Goals PT Intermediate Goals Time Frame: Apr 22, 2017 Transfers (B,C,W/C) (FIM): 5 Gait (FIM): 5 Gait distance (FIM): 3=150 ft Gait Level of Assist: 5 Gait Assistive Device: FWW PT Plan Problem List Problem List: Activity Tolerance, Functional Strength, Safety, Balance, Gait, Transfer, Bed Mobility Treatment/Plan Treatment Plan: Continue Plan of Care Treatment Plan: Bed Mobility, Education, Functional Activity [place], Functional Strength, Gait, Safety, Therapeutic Exercise, Transfers Treatment Duration: Apr 22, 2017 Frequency: 6 times per week Estimated Hrs Per Day: .25 hour per day Patient and/or Family Agrees t: Yes Safety Risks/Education Patient Education: Safety Issues Teaching Recipient: Family Teaching Methods: Discussion Response to Teaching: Verbalize Understanding Discharge Recommendations Therapy D/C Recommendations: Home w/ Family Support Time/GCodes Time In: 945 Time Out: 1000 Total Billed Treatment Time: 15 Total Billed Treatment 1 visit EVLowC 15 min G Codes Necessary: CECILLE Muniz PT Apr 15, 2017 10:22
--- NOTE | 2017-04-15 11:44 | Diagnostic Imaging Report ---
INDICATION: Hypertension, dyspnea, and fever. TECHNIQUE: AP and lateral views of the chest were obtained. COMPARISON: 04/14/2017. FINDINGS: There is mild generalized cardiomegaly. There is air-trapping bilaterally. No pneumothorax is seen. Basilar atelectasis in the left lung is stable. There is improved expansion of the right lung base. 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 There is improvement in the right basilar atelectasis. Dictated by: Dictated on workstation # [id number]
[2017-04-15] MEDS: LATANOPROST 0.005% (XALATAN) OPHTH SOLN 2.5 ML OU SCH (20:38)
[2017-04-15] MEDS: ARTIFICAL TEARS 0.4 ML UNIT DOSE (REFRESH PLUS) OS SCH ×2 (20:39→20:41)
[2017-04-16] VITALS (7 sets, daily range): BP systolic 168–196; BP diastolic 70–86
[2017-04-16] MEDS: ACETAMINOPHEN 500 MG TAB (TYLENOL) PO PRN (03:34)
[2017-04-16 05:09] LABS: MEAN PLATELET VOLUME 9.8 FL (7.4-10.4); RED BLOOD COUNT 4.68 10^6/uL (4.35-5.85); RED CELL DISTRIBUTION WIDTH 14.6 % (10.0-14.5); WHITE BLOOD COUNT 4.8 10^3/uL (4.3-11.0)
[2017-04-16 05:51] LABS: ALANINE AMINOTRANSFERASE 12 U/L (0-55); ALBUMIN 3.4 GM/DL (3.2-4.5); ANION GAP 7 MMOL/L (5-14); ASPARTATE AMINO TRANSFERASE 15 U/L (5-34); BILIRUBIN,TOTAL 0.7 MG/DL (0.1-1.0); BLOOD UREA NITROGEN 6 MG/DL (7-18); BUN/CREATININE RATIO 10; CARBON DIOXIDE 26 MMOL/L (21-32); CHLORIDE 101 MMOL/L (98-107); CREATININE SERUM 0.59 MG/DL (0.60-1.30); GFR ESTIMATED > 60; GLUCOSE 93 MG/DL (70-105); SODIUM 134 MMOL/L (135-145); TOTAL PROTEIN 6.2 GM/DL (6.4-8.2)
[2017-04-16] MEDS: NS IV 1000 ML 1,000 ML IV SCH ×2 (05:59→20:09)
[2017-04-16] MEDS: TROSPIUM 20 MG (SANCTURA) TAB PO SCH ×2 (05:59→16:38)
[2017-04-16] MEDS: CATHETER FLUSH 10 ML SYR IV SCH ×3 (05:59→20:08)
[2017-04-16] MEDS: RT-ALBUTEROL SULF 2.5 MG/3 ML PRE-MIX VIAL IH SCH ×4 (07:50→19:22)
[2017-04-16] MEDS: ARTIFICAL TEARS 0.4 ML UNIT DOSE (REFRESH PLUS) OS SCH ×2 (08:21→20:09)
[2017-04-16] MEDS: cefTRIAXone 1 GM/NS 50 ML IVPB IV SCH ×2 (08:21)
[2017-04-16] MEDS: TIMOLOL MALEATE 0.5% 5 ML (TIMOPTIC) BTL OU SCH ×2 (08:22→20:09)
[2017-04-16] MEDS: BRIMONIDINE 0.2% (ALPHAGAN) OPHTH SOLN 5 ML BTL OU SCH ×2 (08:22→20:09)
[2017-04-16] MEDS: AZITHROMYCIN 250 MG TAB (ZITHROMAX) PO SCH (08:22)
[2017-04-16] MEDS: lisINopril 20 MG (ZESTRIL) TAB PO SCH (08:23)
[2017-04-16] MEDS: ENOXAPARIN 40 MG/0.4 ML (LOVENOX) SYR SC SCH (08:23)
[2017-04-16] MEDS: CLOPIDOGREL 75 MG (PLAVIX) TABLET PO SCH (08:23)
--- NOTE | 2017-04-16 08:55 | Progress Note (SOAP) ---
Subjective Date Seen by Provider: Apr 16, 2017 Time Seen by Provider: 08:55 Subjective/Events-last exam PT REPORTS THAT SHE STILL DOES NOT FEEL WELL. SHE REPORTS THAT SHE IS FEELING BETTER TODAY - HER DAUGHTER STATES THAT CRISTIAN IS ACTING BETTER TODAY, SHE APPEARS TO BE LESS CONFUSED AND LESS DIZZY TODAY. Review of Systems General: No Chills, Fatigue Pulmonary: Cough Cardiovascular: No: Chest Pain Gastrointestinal: No: Abdominal Pain, Nausea Neurological: Confusion, Weakness Objective Exam Vital Signs Date Time Temp Pulse Resp B/P (MAP) Pulse Ox O2 Delivery O2 Flow Rate FiO2 04/16/17 07:51 95 Nasal Cannula 3.00 04/16/17 04:00 98.4 55 20 180/79 94 Nasal Cannula 6.00 04/16/17 01:00 54 04/16/17 00:12 175/80 04/16/17 00:00 98.2 57 20 178/76 96 Nasal Cannula 6.00 04/15/17 21:00 Nasal Cannula 6.00 04/15/17 19:22 92 Nasal Cannula 4.00 04/15/17 19:16 99.3 65 24 178/76 94 Nasal Cannula 6.00 04/15/17 19:00 63 04/15/17 15:23 98.2 59 24 164/77 93 Nasal Cannula 6.00 04/15/17 14:13 91 Nasal Cannula 4.00 04/15/17 13:00 57 04/15/17 12:00 97.6 52 18 155/87 96 Nasal Cannula 6.00 04/15/17 10:19 93 Nasal Cannula 4.00 I & O 04/16/17 07:00 Intake Total 2200 ml Output Total 2650 ml Balance -450 ml Capillary Refill : Less Than 3 SecondsLess Than 3 Seconds General Appearance: No Apparent Distress, WD/WN HEENT: PERRL/EOMI Neck: Supple Respiratory: Chest Non Tender, Decreased Breath Sounds Cardiovascular: Regular Rate, Rhythm Gastrointestinal: normal bowel sounds, non tender, soft Extremity: No Pedal Edema Neurologic/Psychiatric: Alert, Oriented x3, No Motor/Sensory Deficits Skin: Warm/Dry Results Lab Laboratory Tests 04/16/17 04:30: White Blood Count 4.8, Red Blood Count 4.68, Hemoglobin 13.8, Hematocrit 43, Mean Corpuscular Volume 92, Mean Corpuscular Hemoglobin 30, Mean Corpuscular Hemoglobin Concent 32, Red Cell Distribution Width 14.6H, Platelet Count 204, Mean Platelet Volume 9.8, Sodium Level 134L, Potassium Level 4.0, Chloride Level 101, Carbon Dioxide Level 26, Anion Gap 7, Blood Urea Nitrogen 6L, Creatinine 0.59L, Estimat Glomerular Filtration Rate > 60, BUN/Creatinine Ratio 10, Glucose Level 93, Calcium Level 8.0L, Total Bilirubin 0.7, Aspartate Amino Transf (AST/SGOT) 15, Alanine Aminotransferase (ALT/SGPT) 12, Alkaline Phosphatase 103, Total Protein 6.2L, Albumin 3.4 Microbiology 04/14/17 Blood Culture - Preliminary, Resulted No growth 04/14/17 Urine Culture - Preliminary, Resulted NO GROWTH Assessment/Plan Assessment/Plan Assess & Plan/Chief Complaint HYPERTENSIVE URGENCY URINARY TRACT INFECTION PNEUMONIA WEAKNESS HEADACHE DEPRESSION ANXIETY HYPERTENSIVE URGENCY - ORAL ANTIHYPERTENSIVES - MONITOR SYMPTOMS OF HYPERTENSION -INCREASED DOSE OF LISINOPRIL DID NOT IMPROVE PRESSURE - THEREFORE ADDED ORAL DOSE OF HYDRALAZINE 10MG QID URINARY TRACT INFECTION - PT STARTED ON ROCEPHIN, MONITOR URINE CULTURE. PNEUMONIA - CXR PENDING THIS MORNING - STARTED ON ROCEPHIN AND AZITHROMYCIN ON . WEAKNESS - PHYSICAL THERAPY STARTED ON 04/15/17 HEADACHE - IMPROVED AFTER TYLENOL AND HYPERTENSIVE CONTROL. DEPRESSION - RESTARTED SSRI - PT TAKES LEXAPRO AT HOME, SWITCHED TO HOSPITAL FORMULARY - CELEXA. ANXIETY - ATIVAN PRN IN HOSPITAL. GI PROPHYLAXIS - PEPCID DVT PROPHYLAXIS - STARTED LOVENOX AND SCD'S Clinical Quality Measures DVT/VTE Risk/Contraindication: Risk Factor Score Per Nursin RFS Level Per Nursing on Admit: 4+=Very High JOYCE BARNES MD Apr 16, 2017 08:55
[2017-04-16] MEDS ORDERED: SENNA W/DOCUSATE (SENOKOT S) TABLET PO NR (09:30)
--- NOTE | 2017-04-16 10:05 | Diagnostic Imaging Report ---
INDICATION: Cough. TECHNIQUE: PA and lateral views of the chest were obtained at 0944 hours. COMPARISON: 04/15/2017. FINDINGS: There is cardiomegaly again noted. There is some atelectatic change versus mild infiltrate in both lung bases, similar to the prior study. There is no pneumothorax or pleural fluid. IMPRESSION: Stable bibasilar atelectatic change versus infiltrate. Cardiomegaly. No new abnormality compared to yesterday. Dictated by: Dictated on workstation # [id number]
--- NOTE | 2017-04-16 11:29 | ST Dysphagia Evaluation ---
Speech Evaluation-General Medical Diagnosis Hypoxia, UTI Onset Date: Apr 14, 2017 Therapy Diagnosis Therapy Diagnosis: Mild Oropharyngeal Dysphagia Precautions Precautions: Aspiration Precautions/Isolations: Standard Precautions Referral Referring Physician: Dr. Xuan Negrete Reason for Referral: Evaluation/Treatment Bedside Swallowing Evaluation Medical History Pertinent Medical History: Arthritis, Dementia (severe), HTN Reviewed History: Yes Social History Current Living Status: Children Speech PLF/Current-Dysphagia Prior Level of Function The patient and patient's daughter (who was present for the evaluation) reported the patient frequently "chokes" on liquid consistencies. Additionally, the patient "coughs and coughs" after the completion of meals and while laying on her back in the evening. The patient reports she consumes a regular diet with thin liquids at home and does not avoid any specific consistencies due to her swallowing difficulty. Subjective The patient was recently admitted to [facility] with a diagnosis of hypoxia and UTI. The patient greeted the clinician upon entrance. The patient was seated upright in a recliner and agreed to participation in the dysphagia evaluation. The patient's daughter was present at bedside. The patient demonstrated intermittent confusion throughout the assessment. CXR: 04/16/17: Stable bibasilar atelectatic change versus infiltrate. Cognitive Status Patient Orientation: Person, Place, Situation Oral Motor Skills Dentition: Edentalous Denture Type: Full- Upper & Lower Current Food Consistancy: Regular, Thin Liquids Ability to Follow Directions: Good Oral Expression Ability: Mild Impairment Voice Voice Phonatory-Based Quality: Glottal Baum Voice Pitch: Normal Voice Loudness: Mildly Soft/Quiet Face Facial Symmetry: Symmetrical Oral-Facial Assessment Oral-Facial Dentition: Normal Labial Seal Description: Normal Smile: Normal Lingual Protrusion: Normal (A white coating was noted on the patient's lingual surface.) Lingual ROM: Normal Lingual Strength: Normal Pharynx Velopharyngeal Move.: Normal Volitional Dry Swallow: Yes Dysphagia Evaluation Consistencies Presented: Regular, Thin Liquid, Pureed Oral Phase: Reduced Oral Transit The patient demonstrated increased effort and duration of posterior transfer of bolus material. Additionally, a piecemeal swallow was demonstrated with all consistencies tested. Pharyngeal Phase: Multiple Swallow Attempts - The patient demonstrate several swallows per bolus, which appeared to be effortful and often contained air. The patient would frequently belch following the swallow with all consistencies. - Thin Liquid (via straw): The patient demonstrated an immediate cough following one swallow of thin liquid via straw. - Thin Liquid (via cup sip and teaspoon): No signs/symptoms of aspiration were demonstrated with multiple trials of thin liquid via teaspoon or cup sip. - Puree/Solid: No signs/symptoms of aspiration were demonstrated with multiple boluses of puree or solid consistencies tested. Dietary Recommendations: Regular Liquid Recommendations: Thin Swallowing Precautions: Decreased Bolus 1/4 Tsp, Liquids from Cup, No Straw, Small Bites and Sips, Sitting 90 Degrees 30 Post Intake - Avoid mixed consistencies (visited and explained consistency with the patient and patient's daughter). Dysphagia Evaluation Summary Mild oropharyngeal dysphagia characterized by reduced lingual range of motion with decreased and effortful pharyngeal coordination (delayed swallow). Speech Short Term Goals Short Term Goals Short Term Goals 1. The patient will demonstrate swallowing strategies with 80% accuracy with mild clinician verbal cueing. Time Frame-STG: Three Days Speech Penitentiary Goals Fire Control Mechanic Goals 1. The patient will tolerate the least restrictive diet without signs/symptoms of aspiration or laryngeal penetration. Time Frame: One Week Speech-Plan Treatment Plan Speech Therapy Treatment Plan: Continue Plan of Care Continue skilled speech pathology to focus on swallowing strategies and safety. Frequency: 3 times per week Estimated Hrs Per Day: .25 hour per day Rehab Potential: Fair Safety Risks/Education Teaching Recipient: Patient, Family Teaching Methods: Discussion Response to Teaching: Verbalize Understanding Time Speech Therapy Time In: 10:30 Speech Therapy Time Out: 10:45 Total Billed Time: 15 Billed Treatment Time JAKE WinterMARY Santana Apr 16, 2017 11:29
--- NOTE | 2017-04-16 11:54 | Physician Query Clarification ---
PQ-Uncertain Diagnosis Admission/Discharge Admission Date: Apr 14, 2017 at 08:23 Discharge Date: The medical record reflects the following clinical scenario: History/Risk Factors: Pneumonia Hypertensive urgency Clinical Findings: Chest xray-Pulmonary venous congestion. Increased atelectasis. 02 sats 86% in ED. BNP 265.6 Treatment: 3 liters oxygen Apresoline injection Multiple chest xrays Question: Is diagnosis a clinically valid diagnosis? Acute Pulmonary Edema was documented in the Dr. Euceda ED record with no further documentation in the medical record. Please document a response below. PHYSICIAN RESPONSE Diagnosis clinically valid: Yes, Conditon resolved In responding to this query, please exercise your independent professional judgment. The purpose of this communication is to more accurately reflect the complexity of your patients condition. The fact that a question is asked does not imply that any particular answer is desired or expected. Thank you for your timely response to this clarification. Requestors name: Xena Cordova [facility] Phone # ext [phone] or [phone] THIS PHYSICIAN QUERY FORM IS A PERMANENT PART OF THE MEDICAL RECORD XENA CORDOVA Apr 16, 2017 11:54 JOYCE BARNES MD Apr 30, 2017 09:07
--- NOTE | 2017-04-16 15:24 | Physical Therapy Daily Note ---
PT Daily Note-Current Subjective Pt is sitting in recliner upon arrival. Pt agrees to walk for PT with some encouragement from family. Pt is suffering with Dementia. Pain Location: No Pain Reported Mental Status Patient Orientation: Person, Confused Attachments: Oxygen (Not used during walk ), IV Transfers Functional [place] Measure 0=Not Assessed/NA 4=Minimal Assistance 1=Total Assistance 5=Supervision or Setup 2=Maximal Assistance 6=Modified [place] 3=Moderate Assistance 7=Complete IndependenceIRFPAI Quality Coding Scale 6 Independent with activity with or without an assistive device 5 Patient requires set up or clean up by helper. Patient completes activity by themselves 4 Supervision or touching assist (CGA). [place] provide cues , steadying assist 3 The helper provides less than half the effort to complete the activity 2 The helper provides more than half the effort to complete the activity 1 Dependent. The helper does all the effort to complete an activity 7 Patient refused to complete or attempt activity 9 The patient did not perform the activity before the current illness or injury 88 Not attempted due to Medical conditions or safety concerns Scootin Sit to/from Stand: 4 Weight Bearing Weight Bearing Restriction: Full Weight Bearing Location Restriction: LE Bilateral Gait Training Distance (FIM): 3=150 ft Distance: 250' Gait Level of Assist: 4 Gait Persons Needed: 1 Gait Assistive Device: FWW Pt walks with normalized gait pattern although suffers with Dementia so pt isn' t always safe with mobility. Treatments Pt transferred from recliner to standing using FWW at CGA-Min A. Pt ambulated at CGA using FWW. Pt returned to room when fatigued and needed rest. Pt then needed assistance to BS and standing for self danya-care. Pt returned to recliner to rest and order lunch. Pt is resting with all needs met at end of tx. Assessment Current Status: Good Progress Pt's gait is improving to normalized gait pattern, not as anxious. PT Defense Analyst Goals Jail Goals PT Defense Analyst Goals Time Frame: Apr 22, 2017 Transfers (B,C,W/C) (FIM): 5 Gait (FIM): 5 Gait distance (FIM): 3=150 ft Gait Level of Assist: 5 Gait Assistive Device: FWW PT Plan Problem List Problem List: Activity Tolerance, Functional Strength, Safety, Balance, Gait, Transfer Treatment/Plan Treatment Plan: Continue Plan of Care Treatment Plan: Bed Mobility, Education, Functional Activity [place], Functional Strength, Gait, Safety, Therapeutic Exercise, Transfers Treatment Duration: Apr 22, 2017 Frequency: 6 times per week Estimated Hrs Per Day: .25 hour per day Patient and/or Family Agrees t: Yes Safety Risks/Education Patient Education: Gait Training, Transfer Techniques, Correct Positioning, Safety Issues Teaching Recipient: Patient, Family Teaching Methods: Discussion Response to Teaching: Verbalize Understanding (for family members only) Time/GCodes Time In: 1140 Time Out: 1210 Total Billed Treatment Time: 30 Total Billed Treatment visit, GT (20m) & FA (10m) ROSIO MILLER HYDROGEN OPERATOR Apr 16, 2017 15:24
[2017-04-16] MEDS: SENNA W/DOCUSATE (SENOKOT S) TABLET PO SCH (20:07)
[2017-04-16] MEDS: LATANOPROST 0.005% (XALATAN) OPHTH SOLN 2.5 ML OU SCH (20:09)
[2017-04-17] VITALS (8 sets, daily range): BP systolic 156–225; BP diastolic 66–98
[2017-04-17] MEDS: NS IV 1000 ML 1,000 ML IV SCH (00:10)
[2017-04-17] MEDS ORDERED: ONDANSETRON 4 MG/2 ML (SDV) Z0FRAN IVP ONE (00:15)
[2017-04-17] MEDS: CATHETER FLUSH 10 ML SYR IV SCH ×3 (05:44→20:24)
[2017-04-17] MEDS: TROSPIUM 20 MG (SANCTURA) TAB PO SCH ×2 (05:44→16:59)
[2017-04-17] MEDS: ACETAMINOPHEN 500 MG TAB (TYLENOL) PO PRN ×2 (06:23)
[2017-04-17] MEDS: hydrALAZINE (APESOLINE) 20 MG/ML VIAL IV PRN ×2 (08:14)
[2017-04-17] MEDS: cefTRIAXone 1 GM/NS 50 ML IVPB IV SCH ×2 (08:14)
--- NOTE | 2017-04-17 08:24 | Progress Note (SOAP) ---
Subjective Date Seen by Provider: Apr 17, 2017 Time Seen by Provider: 08:24 Subjective/Events-last exam PT REPORTS THAT SHE IS NOT FEELING WELL TODAY - HAS A HEADACHE. SHE STATES THAT SHE IS HAVING ANY CHEST PAIN, NAUSEA, ABDOMINAL PAIN. Review of Systems General: No Chills, Fatigue HEENT: Head Aches Pulmonary: No Dyspnea, Cough Cardiovascular: No: Chest Pain Gastrointestinal: No: Abdominal Pain, Nausea Neurological: Confusion, Weakness Objective Exam Vital Signs Date Time Temp Pulse Resp B/P (MAP) Pulse Ox O2 Delivery O2 Flow Rate FiO2 04/17/17 04:21 97.4 66 22 171/80 04/17/17 01:00 67 04/17/17 00:00 98.0 60 22 225/98 93 Nasal Cannula 6.00 04/16/17 21:00 Nasal Cannula 3.00 04/16/17 19:22 87 Nasal Cannula 04/16/17 19:06 97.8 57 19 192/77 91 Nasal Cannula 6.00 04/16/17 15:40 98.0 65 19 196/82 90 Nasal Cannula 6.00 04/16/17 14:53 92 Nasal Cannula 1.00 04/16/17 13:00 50 04/16/17 12:00 98.7 53 20 185/86 93 Nasal Cannula 6.00 04/16/17 11:12 93 Nasal Cannula 2.00 04/16/17 09:00 Nasal Cannula 2.00 I & O 04/17/17 07:00 Intake Total 2240 ml Output Total 1850 ml Balance 390 ml Capillary Refill : Less Than 3 SecondsLess Than 3 Seconds General Appearance: WD/WN, Mild Distress (DUE TO HEADACHE) Neck: Supple Respiratory: Chest Non Tender, Decreased Breath Sounds Cardiovascular: Regular Rate, Rhythm Gastrointestinal: normal bowel sounds, non tender, soft Neurologic/Psychiatric: Alert, Oriented x3 Skin: Warm/Dry Lymphatic: No Adenopathy Results Lab Microbiology 04/14/17 Blood Culture - Preliminary, Resulted No growth 04/14/17 Urine Culture - Final, Complete NO GROWTH Assessment/Plan Assessment/Plan Assess & Plan/Chief Complaint HYPERTENSIVE URGENCY URINARY TRACT INFECTION PNEUMONIA WEAKNESS HEADACHE DEPRESSION ANXIETY HYPERTENSIVE URGENCY - ORAL ANTIHYPERTENSIVES - MONITOR SYMPTOMS OF HYPERTENSION INCREASE HYDRALAZINE TO 25MG QID URINARY TRACT INFECTION - PT STARTED ON ROCEPHIN. PNEUMONIA - CXR PENDING THIS MORNING - STARTED ON ROCEPHIN AND AZITHROMYCIN ON . WEAKNESS - PHYSICAL THERAPY STARTED ON 04/15/17 HEADACHE - IMPROVED AFTER TYLENOL AND HYPERTENSIVE CONTROL. DEPRESSION - RESTARTED SSRI - PT TAKES LEXAPRO AT HOME, SWITCHED TO HOSPITAL FORMULARY - CELEXA. ANXIETY - ATIVAN PRN IN HOSPITAL. GI PROPHYLAXIS - PEPCID DVT PROPHYLAXIS - STARTED LOVENOX AND SCD'S Clinical Quality Measures DVT/VTE Risk/Contraindication: Risk Factor Score Per Nursin RFS Level Per Nursing on Admit: 4+=Very High JOYCE BARNES MD Apr 17, 2017 08:24
[2017-04-17] MEDS: RT-ALBUTEROL SULF 2.5 MG/3 ML PRE-MIX VIAL IH SCH ×4 (08:42→19:45)
[2017-04-17] MEDS: ARTIFICAL TEARS 0.4 ML UNIT DOSE (REFRESH PLUS) OS SCH ×2 (09:23→20:25)
[2017-04-17] MEDS: SENNA W/DOCUSATE (SENOKOT S) TABLET PO SCH ×2 (09:23→20:22)
[2017-04-17] MEDS: AZITHROMYCIN 250 MG TAB (ZITHROMAX) PO SCH (09:23)
[2017-04-17] MEDS: CLOPIDOGREL 75 MG (PLAVIX) TABLET PO SCH (09:23)
[2017-04-17] MEDS: lisINopril 20 MG (ZESTRIL) TAB PO SCH (09:23)
[2017-04-17] MEDS: TIMOLOL MALEATE 0.5% 5 ML (TIMOPTIC) BTL OU SCH ×2 (09:24→20:24)
[2017-04-17] MEDS: BRIMONIDINE 0.2% (ALPHAGAN) OPHTH SOLN 5 ML BTL OU SCH ×2 (09:24→20:24)
--- NOTE | 2017-04-17 09:53 | Speech Therapy Progress Note ---
Therapy Progress Note The clinician attempted follow up with the patient at approximately 9:30 on this date. The patient's daughter was present at bedside, as well as, the patient's RN. Per patient's daughter and patient, the patient is not feeling well. The patient's daughter and clinician agreed to complete re-evaluation of patient's swallowing at a later time. Per patient's daughter, the patient has done well with her meals and has not demonstrated any signs/symptoms of aspiration since the evaluation the day prior. The speech pathologist will continue to monitor to the patient's progress. MARY CHAMBERS Apr 17, 2017 09:53
--- NOTE | 2017-04-17 10:10 | Physical Therapy Progress Note ---
Therapy Progress Note PT visit attempted. Family present and declined therapy at this time. Reported , "I don't think she is up to it this morning." Will attempt later today or tomorrow. MARY THOMPSON PT Apr 17, 2017 10:10
[2017-04-17] MEDS: hydrALAZINE (APRESOLINE) 25 MG TAB PO SCH ×3 (10:42→22:10)
[2017-04-17] MEDS: ENOXAPARIN 40 MG/0.4 ML (LOVENOX) SYR SC SCH (10:44)
[2017-04-17] MEDS ORDERED: ALPRAZolam 0.25 MG (XANAX) TAB PO PRN (19:45)
[2017-04-17] MEDS: LATANOPROST 0.005% (XALATAN) OPHTH SOLN 2.5 ML OU SCH (20:25)
[2017-04-18] VITALS: BP 141/69
[2017-04-18] MEDS: ACETAMINOPHEN 500 MG TAB (TYLENOL) PO PRN (01:42)
[2017-04-18 02:00] VITALS: BP 183/72
[2017-04-18] MEDS: hydrALAZINE (APRESOLINE) 25 MG TAB PO SCH (04:32)
[2017-04-18 04:35] VITALS: BP 194/84
[2017-04-18] MEDS: TROSPIUM 20 MG (SANCTURA) TAB PO SCH (05:06)
[2017-04-18] MEDS: CATHETER FLUSH 10 ML SYR IV SCH (05:06)
[2017-04-18] MEDS: RT-ALBUTEROL SULF 2.5 MG/3 ML PRE-MIX VIAL IH SCH (06:17)
--- NOTE | 2017-04-18 07:31 | Discharge Summary ---
Diagnosis/Chief Complaint Date of Admission Apr 14, 2017 at 08:23 Date of Discharge Discharge Date: Apr 18, 2017 Discharge Time: 08:10 Admission Diagnosis Admission Diagnosis HYPERTENSIVE URGENCY URINARY TRACT INFECTION PNEUMONIA WEAKNESS HEADACHE DEPRESSION ANXIETY Discharge Diagnosis HYPERTENSIVE URGENCY URINARY TRACT INFECTION PNEUMONIA WEAKNESS HEADACHE DEPRESSION ANXIETY CONFUSION Reason Hospital Visit PT IS AN 86 Y/O FEMALE WHO IS KNOWN TO ME FROM CLINIC. SHE PRESENTED TO THE EMERGENCY DEPARTMENT THIS MORNING WITH FEELING POORLY, HEADACHE, WEAKNESS, AND ELEVATED BLOOD PRESSURE. SHE HAD A BLOOD PRESSURE OF OVER 200/100 ON PRESENTATION TO THE EMERGENCY DEPARTMENT. UPON MY EVALUATION OF THE PATIENT THIS MORNING, SHE STATES THAT SHE FEELS BAD WITH A HEADACHE, SHE DENIES DIZZINESS, CHEST PAIN, SHORTNESS OF BREATH. Discharge Summary Discharge Physical Examination Allergies: Coded Allergies: No Known Drug Allergies (Unverified , 01/18/14) Vitals & I&Os Vital Signs Date Time Temp Pulse Resp B/P (MAP) Pulse Ox O2 Delivery O2 Flow Rate FiO2 04/18/17 07:00 58 04/18/17 06:22 94 Nasal Cannula 3.00 04/18/17 04:35 98.4 22 194/84 General Appearance: Alert, Oriented X3, Cooperative HEENT: Atraumatic, Mucous Memb Moist/[place] Respiratory: Clear to Auscultation, Normal Air Movement Cardiovascular: Regular Rate Abdominal: Normal Bowel Sounds, Soft Extremities: No Cyanosis Skin: Other (SMALL LESION ON LEFT ANTERIOR LOWER LEG) Neuro: Cranial Nerves 3-12 NL Psych/Mental Status: Mental Status NL, Mood NL Hospital Course HYPERTENSIVE URGENCY URINARY TRACT INFECTION PNEUMONIA WEAKNESS HEADACHE DEPRESSION ANXIETY HYPERTENSIVE URGENCY - ORAL ANTIHYPERTENSIVES - MONITOR SYMPTOMS OF HYPERTENSION INCREASE HYDRALAZINE TO 25MG QID URINARY TRACT INFECTION - PT STARTED ON ROCEPHIN. PNEUMONIA - CXR PENDING THIS MORNING - STARTED ON ROCEPHIN AND AZITHROMYCIN ON . WEAKNESS - PHYSICAL THERAPY STARTED ON 04/15/17 HEADACHE - IMPROVED AFTER TYLENOL AND HYPERTENSIVE CONTROL. DEPRESSION - RESTARTED SSRI - PT TAKES LEXAPRO AT HOME, SWITCHED TO HOSPITAL FORMULARY - CELEXA. ANXIETY - ATIVAN PRN IN HOSPITAL. GI PROPHYLAXIS - PEPCID DVT PROPHYLAXIS - STARTED LOVENOX AND SCD'S Discharge Condition at discharge IMPROVING Instructions to patient/family Please see electonic discharge instructions given to patient. Discharge Medications Reviewed and agree with Discharge Medication list on patient's Discharge Instruction sheet Clinical Quality Measures DVT/VTE Risk/Contraindication: Risk Factor Score Per Nursin RFS Level Per Nursing on Admit: 4+=Very High JOYCE BARNES MD Apr 18, 2017 07:31
[2017-04-18] MEDS ORDERED: hydrALAZINE (APRESOLINE) 25 MG TAB PO SCH (10:00)
--- OUTSIDE RECORDS SUMMARY | 2017-04-24 11:15 | XMS REPORT | Continuity of Care Document ---
Author Author [facility] Organization [facility] Address Unknown Phone Unavailable Allergies Active Description Code Type Severity Reaction Onset Reported/Identified Relationship to Patient Clinical Status Yes No Known Drug Allergies [id number] Drug Allergy Unknown N/ A 01/18/2014 Medications Problems Date Dx Coded Attending Type Code Diagnosis Diagnosed By 01/25/2014 RADHA BURDICK MD Ot 276.1 HYPOSMOLALITY 01/25/2014 RADHA BURDICK MD Ot 298.2 REACTIVE CONFUSION 01/25/2014 RADHA BURDICK MD Ot 414.01 CORONARY ATHEROSCLEROSIS OF [place] CORON 01/25/2014 RADHA BURDICK MD Ot 722.52 LUMB/LUMBOSAC DISC DEGEN 01/25/2014 RADHA BURDICK MD Ot 733.00 OSTEOPOROSIS NOS 01/25/2014 RADHA BURDICK MD Ot 733.13 PATHOLOGIC FRACTURE, VERTEBRAE 01/25/2014 RADHA BURDICK MD Ot 738.4 ACQ SPONDYLOLISTHESIS 01/25/2014 RADHA BURDICK MD Ot V45.82 PERCUTANEOUS TRANSLUM CORON ANGIOPLASTY 03/16/2014 RADHA BURDICK MD Ot 276.1 HYPOSMOLALITY 03/16/2014 RADHA BURDICK MD Ot 294.20 DEMENTIA, UNSPECIFIED, 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 03/16/2014 RADHA BURDICK MD Ot 401.9 HYPERTENSION NOS 03/16/2014 RADHA BURDICK MD Ot 414.01 CORONARY ATHEROSCLEROSIS OF [place] CORON 03/16/2014 RADHA BURDICK MD Ot 716.90 ARTHROPATHY NOS-UNSPEC 03/16/2014 RADHA BURDICK MD Ot 724.5 BACKACHE NOS 03/16/2014 RADHA BURDICK MD Ot 733.00 OSTEOPOROSIS NOS 03/16/2014 RADHA BURDICK MD Ot 808.2 FRACTURE OF PUBIS-CLOSED 03/16/2014 RADHA BURDICK MD Ot 913.0 ABRASION FOREARM 03/16/2014 RADHA BURDICK MD Ot 920 CONTUSION FACE/SCALP/NCK 03/16/2014 RADHA BURDICK MD Ot E013.9 OTHER HOUSEHOLD MAINTENANCE 03/16/2014 RADHA BURDICK MD Ot E849.0 ACCIDENT IN HOME 03/16/2014 RADHA BURDICK MD Ot E888.1 FALL STRIKING OBJECT NEC 03/16/2014 RADHA BURDICK MD Ot V45.82 PERCUTANEOUS TRANSLUM CORON ANGIOPLASTY 03/16/2014 RADHA BURDICK MD Ot V45.89 POSTSURGICAL STATES NEC 03/16/2014 RADHA BURDICK MD Ot V58.63 LONG-TERM(CURRENT)USE OF ANTIPLATELET/AN 03/31/2014 JOSÉ LUIS WRIGHT MD Ot 276.1 HYPOSMOLALITY 03/31/2014 JOSÉ LUIS WRIGHT MD Ot 401.9 HYPERTENSION NOS 03/31/2014 JOSÉ LUIS WRIGHT MD Ot 414.01 CORONARY ATHEROSCLEROSIS OF [place] CORON 03/31/2014 JOSÉ LUIS WRIGHT MD Ot 564.00 UNSPEC CONSTIPATION 03/31/2014 JOSÉ LUIS WRIGHT MD Ot 724.5 BACKACHE NOS 03/31/2014 JOSÉ LUIS WRIGHT MD Ot 733.00 OSTEOPOROSIS NOS 03/31/2014 JOSÉ LUIS WRIGHT MD Ot V15.88 HISTORY OF FALL 03/31/2014 JOSÉ LUIS WRIGHT MD Ot V45.82 PERCUTANEOUS TRANSLUM CORON ANGIOPLASTY 03/31/2014 JOSÉ LUIS WRIGHT MD Ot V54.19 AFTERCARE HEALING TRAUMATIC FX OTHER BON 03/31/2014 JOSÉ LUIS WRIGHT MD Ot V57.89 REHABILITATION PROC NEC 02/20/2015 RADHA BURDICK MD Ot 719.45 02/20/2015 RADHA BURDICK MD Ot 733.90 02/20/2015 RADHA BURDICK MD Ot 959.6 02/20/2015 RADHA BURDICK MD Ot E000.8 02/20/2015 RADHA BURDICK MD Ot E849.0 02/20/2015 RADHA BURDICK MD Ot E888.9 03/03/2015 DONOVAN VIZCARRA MD Ot 294.20 DEMENTIA, UNSPECIFIED, 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 03/03/2015 DONOVAN VIZCARRA MD Ot 401.9 HYPERTENSION NOS 03/03/2015 CARMITA PALACIOS, DONOVAN Mckeon Ot 427.89 CARDIAC DYSRHYTHMIAS NEC 03/03/2015 CARMITA PALACIOS, DONOVAN Mckeon Ot 564.00 UNSPEC CONSTIPATION 03/03/2015 DONOVAN VIZCARRA MD Ot 716.90 ARTHROPATHY NOS-UNSPEC 03/03/2015 CARMITA PALACIOS, DONOVAN Mckeon Ot 724.5 BACKACHE NOS 03/03/2015 CARMITA PALACIOS, DONOVAN Mckeon Ot 733.00 OSTEOPOROSIS NOS 03/03/2015 CARMITA PALACIOS, DONOVAN Mckeon Ot 784.0 HEADACHE 03/07/2015 Ot V76.12 03/07/2015 Ot V76.12 03/07/2015 Ot V76.12 03/07/2015 GENNARO PALACIOS, RADHA Jimenez Ot V76.12 03/07/2015 GENNARO PALACIOS, RADHA Jimenez Ot 338.29 03/07/2015 GENNARO PALACIOS, RADHA Jimenez Ot 715.35 03/07/2015 GENNARO PALACIOS, RADHA Jimenez Ot 724.2 03/07/2015 GENNARO PALACIOS, RADHA Jimenez Ot 724.2 03/07/2015 GENNARO PALACIOS, RADHA Jimenez Ot 793.99 03/07/2015 GENNARO PALACIOS, RADHA Jimenez Ot V71.89 03/07/2015 SOHAIL PALACIOS, BERNARDINO Ayala Ot 724.5 03/07/2015 BERNARDINO SAUCEDA MD Ot 793.7 03/07/2015 GENNARO PALACIOS, RADHA Jimenez Ot 719.45 03/07/2015 GENNARO PALACIOS, RADHA Jimenez Ot 733.90 03/07/2015 GENNARO PALACIOS, RADHA Jimenez Ot 959.6 03/07/2015 GENNARO PALACIOS, RADHA Jimenez Ot E000.8 03/07/2015 GENNARO PALACIOS, RADHA Jimenez Ot E849.0 03/07/2015 GENNARO PALACIOS, RADHA Jimenez Ot E888.9 03/07/2015 GENNARO PALACIOS, RADHA Jimenez Ot 719.45 03/07/2015 GENNARO PALACIOS, RADHA Jimenez Ot 733.90 03/07/2015 GENNARO PALACIOS, RADHA Jimenez Ot 959.6 03/07/2015 GENNARO PALACIOS, RADHA Jimenez Ot E000.8 03/07/2015 RADHA BURDICK MD Ot E849.0 03/07/2015 RADHA BURDICK MD Ot E888.9 03/27/2017 Ot V76.12 OTH SCREEN MAMMO-MALIGN NEOPLASM OF [place] 03/27/2017 RADHA BURDICK MD Ot V76.12 OTH SCREEN MAMMO-MALIGN NEOPLASM OF [place] 03/27/2017 RADHA BURDICK MD Ot 338.29 OTHER CHRONIC PAIN 03/27/2017 RADHA BURDICK MD Ot 715.35 LOC OSTEOARTH NOS-PELVIS 03/27/2017 RADHA BURDICK MD Ot 724.2 LUMBAGO 03/27/2017 RADHA BURDICK MD Ot 724.2 LUMBAGO 03/27/2017 RADHA BURDICK MD Ot 793.99 OTH NOSP (ABN) FINDINGS RADIOLOGICAL O 03/27/2017 RADHA BURDICK MD Ot V71.89 OBSERVE SUSPECT OTH SPECIFIED CONDITIONS 03/27/2017 BERNARDINO SAUCEDA MD Ot 724.5 BACKACHE NOS 03/27/2017 BERNARDINO SAUCEDA MD Ot 793.7 NOSP (ABN) FINDINGS ON RADIOLOGICAL OT 03/27/2017 RADHA BURDICK MD Ot 719.45 JOINT PAIN-PELVIS 03/27/2017 RADHA BURDICK MD Ot 733.90 BONE CARTILAGE DIS NOS 03/27/2017 RADHA BURDICK MD Ot 959.6 HIP THIGH INJURY NOS 03/27/2017 RADHA BURDICK MD Ot E000.8 OTHER EXTERNAL CAUSE STATUS 03/27/2017 RADHA BURDICK MD Ot E849.0 ACCIDENT IN HOME 03/27/2017 RADHA BURDICK MD Ot E888.9 FALL NOS 03/31/2017 Ot V76.12 OTH SCREEN MAMMO-MALIGN NEOPLASM OF [place] 03/31/2017 RADHA BURDICK MD Ot V76.12 OTH SCREEN MAMMO-MALIGN NEOPLASM OF [place] 03/31/2017 RADHA BURDICK MD Ot 338.29 OTHER CHRONIC PAIN 03/31/2017 RADHA BURDICK MD Ot 715.35 LOC OSTEOARTH NOS-PELVIS 03/31/2017 RADHA BURDICK MD Ot 724.2 LUMBAGO 03/31/2017 RADHA BURDICK MD Ot 724.2 LUMBAGO 03/31/2017 RADHA BURDICK MD Ot 793.99 OTH NOSP (ABN) FINDINGS RADIOLOGICAL O 03/31/2017 RADHA BURDICK MD Ot V71.89 OBSERVE SUSPECT OTH SPECIFIED CONDITIONS 03/31/2017 BERNARDINO SAUCEDA MD Ot 724.5 BACKACHE NOS 03/31/2017 BERNARDINO SAUCEDA MD Ot 793.7 NOSP (ABN) FINDINGS ON RADIOLOGICAL OT 03/31/2017 RADHA BURDICK MD Ot 719.45 JOINT PAIN-PELVIS 03/31/2017 RADHA BURDICK MD Ot 733.90 BONE CARTILAGE DIS NOS 03/31/2017 RADHA BURDICK MD Ot 959.6 HIP THIGH INJURY NOS 03/31/2017 RADHA BURDICK MD Ot E000.8 OTHER EXTERNAL CAUSE STATUS 03/31/2017 RADHA BURDICK MD Ot E849.0 ACCIDENT IN HOME 03/31/2017 RADHA BURDICK MD Ot E888.9 FALL NOS 04/02/2017 JOYCE BARNES MD Ot M81.0 AGE-RELATED OSTEOPOROSIS W/O CURRENT PAT 04/17/2017 JOYCE BARNES MD Ot E87.1 HYPO-OSMOLALITY AND HYPONATREMIA 04/17/2017 JOYCE BARNES MD Ot F03.90 UNSPECIFIED DEMENTIA 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L 04/17/2017 JOYCE BARNES MD Ot F32.9 MAJOR DEPRESSIVE DISORDER, SINGLE EPISOD 04/17/2017 JOYCE BARNES MD Ot F41.9 ANXIETY DISORDER, UNSPECIFIED 04/17/2017 JOYCE BARNES MD Ot H40.9 UNSPECIFIED GLAUCOMA 04/17/2017 JOYCE BARNES MD Ot H91.92 UNSPECIFIED HEARING LOSS, LEFT EAR 04/17/2017 JOYCE BARNES MD Ot I16.0 HYPERTENSIVE URGENCY 04/17/2017 JOYCE BARNES MD Ot J18.9 PNEUMONIA, UNSPECIFIED ORGANISM 04/17/2017 JOYCE BARNES MD Ot K59.09 OTHER CONSTIPATION 04/17/2017 JOYCE BARNES MD Ot M19.91 PRIMARY OSTEOARTHRITIS, UNSPECIFIED SITE 04/17/2017 JOYCE BARNES MD Ot M54.9 DORSALGIA, UNSPECIFIED 04/17/2017 JOYCE BARNES MD Ot M81.0 AGE-RELATED OSTEOPOROSIS W/O CURRENT PAT 04/17/2017 CAMERON PALACIOS, JOYCE Calderon Ot N30.00 ACUTE CYSTITIS WITHOUT HEMATURIA 04/17/2017 JOYCE BARNES MD Ot R00.1 BRADYCARDIA, UNSPECIFIED 04/17/2017 JOYCE BARNES MD Ot S81.819A LACERATION WITHOUT FOREIGN BODY, UNSP LO 04/17/2017 JOYCE BARNES MD Ot W19.XXXA UNSPECIFIED FALL, INITIAL ENCOUNTER 04/17/2017 CAMERON PALACIOS, JOYCE Calderon Ot Z66 DO NOT RESUSCITATE 04/17/2017 CAMERON PALACIOS, JOYCE Calderon Ot Z91.81 HISTORY OF FALLING 04/18/2017 JOYCE BARNES MD Ot E87.1 HYPO-OSMOLALITY AND HYPONATREMIA 04/18/2017 JOYCE BARNES MD Ot F03.90 UNSPECIFIED DEMENTIA 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L 04/18/2017 JOYCE BARNES MD Ot F32.9 MAJOR DEPRESSIVE DISORDER, SINGLE EPISOD 04/18/2017 JOYCE BARNES MD Ot F41.9 ANXIETY DISORDER, UNSPECIFIED 04/18/2017 JOYCE BARNES MD Ot H40.9 UNSPECIFIED GLAUCOMA 04/18/2017 JOYCE BARNES MD Ot H91.92 UNSPECIFIED HEARING LOSS, LEFT EAR 04/18/2017 JOYCE BARNES MD Ot I16.0 HYPERTENSIVE URGENCY 04/18/2017 CAMERON PALACIOS, JOYCE Calderon Ot J18.9 PNEUMONIA, UNSPECIFIED ORGANISM 04/18/2017 JOYCE BARNES MD Ot K59.09 OTHER CONSTIPATION 04/18/2017 JOYCE BARNES MD Ot M19.91 PRIMARY OSTEOARTHRITIS, UNSPECIFIED SITE 04/18/2017 JOYCE BARNES MD Ot M54.9 DORSALGIA, UNSPECIFIED 04/18/2017 JOYCE BARNES MD Ot M81.0 AGE-RELATED OSTEOPOROSIS W/O CURRENT PAT 04/18/2017 JOYCE BARNES MD Ot N30.00 ACUTE CYSTITIS WITHOUT HEMATURIA 04/18/2017 JOYCE BARNES MD Ot R00.1 BRADYCARDIA, UNSPECIFIED 04/18/2017 JOYCE BARNES MD Ot S81.819A LACERATION WITHOUT FOREIGN BODY, UNSP LO 04/18/2017 JOYCE BARNES MD Ot W19.XXXA UNSPECIFIED FALL, INITIAL ENCOUNTER 04/18/2017 CAMERON PALACIOS, JOYCE Calderon Ot Z66 DO NOT RESUSCITATE 04/18/2017 JOYCE BARNES MD Ot Z91.81 HISTORY OF FALLING Procedures Code Description Performed By Performed On 77.49 BONE BIOPSY NEC 01/19/2014 81.66 PERCUTANEOUS VERTEBRAL AUGMENTATION 01/19/2014 Results Test Result Range Complete blood count (CBC) with automated white blood cell (WBC) differential - 04/14/17 06:15 Blood leukocytes automated count (number/volume) 7.1 10*3/ uL 4.3-11.0 Blood erythrocytes automated count (number/volume) 5.52 10*6 /uL 4.35-5.85 Venous blood hemoglobin measurement (mass/volume) 15.9 g/dL 11.5-16.0 Blood hematocrit (volume fraction) 49 % 35-52 Automated erythrocyte mean corpuscular volume 90 [foz_us] 80-99 Automated erythrocyte mean corpuscular hemoglobin (mass per erythrocyte) 29 pg 25-34 Automated erythrocyte mean corpuscular hemoglobin concentration measurement ( mass/volume) 32 g/dL 32-36 Automated erythrocyte distribution width ratio 14.5 % 10.0-14.5 Automated blood platelet count (count/volume) 279 10*3/uL 130-400 Automated blood platelet mean volume measurement 9.5 [foz_us ] 7.4-10.4 Automated blood neutrophils/100 leukocytes 68 % 42-75 Automated blood lymphocytes/100 leukocytes 19 % 12-44 Blood monocytes/100 leukocytes 12 % 0-12 Automated blood eosinophils/100 leukocytes 1 % 0-10 Automated blood basophils/100 leukocytes 0 % 0-10 Blood neutrophils automated count (number/volume) 4.8 10*3 1.8-7.8 Blood lymphocytes automated count (number/volume) 1.3 10*3 1.0-4.0 Blood monocytes automated count (number/volume) 0.8 10*3 0.0-1.0 Automated eosinophil count 0.1 10*3/uL 0.0-0.3 Automated blood basophil count (count/volume) 0.0 10*3/uL 0.0-0.1 PT panel in platelet poor plasma by coagulation assay - 04/14/17 06:15 Prothrombin time (PT) in platelet poor plasma by coagulation assay 12.8 s 12.2-14.7 INR in platelet poor plasma or blood by coagulation assay 1.0 0.8-1.4 Activated partial thromboplastin time (aPTT) in platelet poor plasma bycoagulation assay - 04/14/17 06:15 Activated partial thromboplastin time (aPTT) in platelet poor plasma bycoagulation assay 26 s 24-35 Blood lactic acid measurement (moles/volume) - 04/14/17 06:15 Blood lactic acid measurement (moles/volume) 1.18 mmol/L 0.50-2.00 Comprehensive metabolic panel - 04/14/17 06:15 Serum or plasma sodium measurement (moles/volume) 129 mmol/ L 135-145 Serum or plasma potassium measurement (moles/volume) 4.7 mmol/L 3.6-5.0 Serum or plasma chloride measurement (moles/volume) 93 mmol/ L 98-107 Carbon dioxide 25 mmol/L 21-32 Serum or plasma anion gap determination (moles/volume) 11 mmol/L 5-14 Serum or plasma urea nitrogen measurement (mass/volume) 14 mg/dL 7-18 Serum or plasma creatinine measurement (mass/volume) 0.78 mg /dL 0.60-1.30 Serum or plasma urea nitrogen/creatinine mass ratio 18 NRG Serum or plasma creatinine measurement with calculation of estimated glomerular filtration rate > NRG Serum or plasma glucose measurement (mass/volume) 114 mg/dL 70-105 Serum or plasma calcium measurement (mass/volume) 9.1 mg/dL 8.5-10.1 Serum or plasma total bilirubin measurement (mass/volume) 1.1 mg/dL 0.1-1.0 Serum or plasma alkaline phosphatase measurement (enzymatic activity/volume) 126 U/L 40-136 Serum or plasma aspartate aminotransferase measurement (enzymatic activity/ volume) 23 U/L 5-34 Serum or plasma alanine aminotransferase measurement (enzymatic activity/volume ) 16 U/L 0-55 Serum or plasma protein measurement (mass/volume) 8.1 g/dL 6.4-8.2 Serum or plasma albumin measurement (mass/volume) 4.0 g/dL 3.2-4.5 Serum or plasma troponin i.cardiac measurement (mass/volume) - 04/14/17 06:15 Serum or plasma troponin i.cardiac measurement (mass/volume) < ng/mL <0.30 Serum or plasma lithium measurement (moles/volume) - 04/14/17 06:15 BNP level 265.6 pg/mL <100.0 Bacterial blood culture - 04/14/17 06:15 Bacterial blood culture NG NRG Bacterial blood culture - 04/14/17 07:00 Bacterial blood culture NG NRG Complete urinalysis with reflex to culture - 04/14/17 07:15 Urine color determination YELLOW NRG Urine clarity determination CLEAR NRG Urine pH measurement by test strip 8 5- 9 Specific gravity of urine by test strip 1.015 1.016-1.022 Urine protein assay by test strip, semi-quantitative 3+ NEGATIVE Urine glucose detection by automated test strip NEGATIVE NEGATIVE Erythrocytes detection in urine sediment by light microscopy 2+ NEGATIVE Urine ketones detection by automated test strip NEGATIVE NEGATIVE Urine nitrite detection by test strip NEGATIVE NEGATIVE Urine total bilirubin detection by test strip NEGATIVE NEGATIVE Urine urobilinogen measurement by automated test strip (mass/volume) NORMAL NORMAL Urine leukocyte esterase detection by dipstick 1+ NEGATIVE Automated urine sediment erythrocyte count by microscopy (number/high power field) NONE NRG Automated urine sediment leukocyte count by microscopy (number/high power field ) [HPF] NRG Bacteria detection in urine sediment by light microscopy FEW NRG Squamous epithelial cells detection in urine sediment by light microscopy 5-10 NRG Crystals detection in urine sediment by light microscopy NONE NRG Casts detection in urine sediment by light microscopy NONE NRG Mucus detection in urine sediment by light microscopy NEGATIVE NRG Complete urinalysis with reflex to culture YES NRG Other elements identification in urine sediment by light microscopy RARE TRANS EPI NRG Bacterial urine culture - 04/14/17 07:15 Bacterial urine culture NG NRG Automated blood complete blood count (hemogram) panel - 04/15/17 04:11 Blood leukocytes automated count (number/volume) 5.2 10*3/ uL 4.3-11.0 Blood erythrocytes automated count (number/volume) 4.60 10*6 /uL 4.35-5.85 Venous blood hemoglobin measurement (mass/volume) 13.4 g/dL 11.5-16.0 Blood hematocrit (volume fraction) 42 % 35-52 Automated erythrocyte mean corpuscular volume 92 [foz_us] 80-99 Automated erythrocyte mean corpuscular hemoglobin (mass per erythrocyte) 29 pg 25-34 Automated erythrocyte mean corpuscular hemoglobin concentration measurement ( mass/volume) 32 g/dL 32-36 Automated erythrocyte distribution width ratio 14.8 % 10.0-14.5 Automated blood platelet count (count/volume) 196 10*3/uL 130-400 Automated blood platelet mean volume measurement 10.0 [foz_ us] 7.4-10.4 Comprehensive metabolic panel - 04/15/17 04:11 Serum or plasma sodium measurement (moles/volume) 131 mmol/ L 135-145 Serum or plasma potassium measurement (moles/volume) 4.0 mmol/L 3.6-5.0 Serum or plasma chloride measurement (moles/volume) 99 mmol/ L 98-107 Carbon dioxide 21 mmol/L 21-32 Serum or plasma anion gap determination (moles/volume) 11 mmol/L 5-14 Serum or plasma urea nitrogen measurement (mass/volume) 15 mg/dL 7-18 Serum or plasma creatinine measurement (mass/volume) 0.73 mg /dL 0.60-1.30 Serum or plasma urea nitrogen/creatinine mass ratio 21 NRG Serum or plasma creatinine measurement with calculation of estimated glomerular filtration rate > NRG Serum or plasma glucose measurement (mass/volume) 90 mg/dL 70-105 Serum or plasma calcium measurement (mass/volume) 7.6 mg/dL 8.5-10.1 Serum or plasma total bilirubin measurement (mass/volume) 0.7 mg/dL 0.1-1.0 Serum or plasma alkaline phosphatase measurement (enzymatic activity/volume) 95 U/L 40-136 Serum or plasma aspartate aminotransferase measurement (enzymatic activity/ volume) 14 U/L 5-34 Serum or plasma alanine aminotransferase measurement (enzymatic activity/volume ) 13 U/L 0-55 Serum or plasma protein measurement (mass/volume) 6.2 g/dL 6.4-8.2 Serum or plasma albumin measurement (mass/volume) 3.3 g/dL 3.2-4.5 Automated blood complete blood count (hemogram) panel - 04/16/17 04:30 Blood leukocytes automated count (number/volume) 4.8 10*3/ uL 4.3-11.0 Blood erythrocytes automated count (number/volume) 4.68 10*6 /uL 4.35-5.85 Venous blood hemoglobin measurement (mass/volume) 13.8 g/dL 11.5-16.0 Blood hematocrit (volume fraction) 43 % 35-52 Automated erythrocyte mean corpuscular volume 92 [foz_us] 80-99 Automated erythrocyte mean corpuscular hemoglobin (mass per erythrocyte) 30 pg 25-34 Automated erythrocyte mean corpuscular hemoglobin concentration measurement ( mass/volume) 32 g/dL 32-36 Automated erythrocyte distribution width ratio 14.6 % 10.0-14.5 Automated blood platelet count (count/volume) 204 10*3/uL 130-400 Automated blood platelet mean volume measurement 9.8 [foz_us ] 7.4-10.4 Comprehensive metabolic panel - 04/16/17 04:30 Serum or plasma sodium measurement (moles/volume) 134 mmol/ L 135-145 Serum or plasma potassium measurement (moles/volume) 4.0 mmol/L 3.6-5.0 Serum or plasma chloride measurement (moles/volume) 101 mmol /L 98-107 Carbon dioxide 26 mmol/L 21-32 Serum or plasma anion gap determination (moles/volume) 7 mmol/L 5-14 Serum or plasma urea nitrogen measurement (mass/volume) 6 mg /dL 7-18 Serum or plasma creatinine measurement (mass/volume) 0.59 mg /dL 0.60-1.30 Serum or plasma urea nitrogen/creatinine mass ratio 10 NRG Serum or plasma creatinine measurement with calculation of estimated glomerular filtration rate > NRG Serum or plasma glucose measurement (mass/volume) 93 mg/dL 70-105 Serum or plasma calcium measurement (mass/volume) 8.0 mg/dL 8.5-10.1 Serum or plasma total bilirubin measurement (mass/volume) 0.7 mg/dL 0.1-1.0 Serum or plasma alkaline phosphatase measurement (enzymatic activity/volume) 103 U/L 40-136 Serum or plasma aspartate aminotransferase measurement (enzymatic activity/ volume) 15 U/L 5-34 Serum or plasma alanine aminotransferase measurement (enzymatic activity/volume ) 12 U/L 0-55 Serum or plasma protein measurement (mass/volume) 6.2 g/dL 6.4-8.2 Serum or plasma albumin measurement (mass/volume) 3.4 g/dL 3.2-4.5 Automated blood complete blood count (hemogram) panel - 04/18/17 09:02 Blood leukocytes automated count (number/volume) 6.7 10*3/ uL 4.3-11.0 Blood erythrocytes automated count (number/volume) 5.01 10*6 /uL 4.35-5.85 Venous blood hemoglobin measurement (mass/volume) 14.7 g/dL 11.5-16.0 Blood hematocrit (volume fraction) 46 % 35-52 Automated erythrocyte mean corpuscular volume 92 [foz_us] 80-99 Automated erythrocyte mean corpuscular hemoglobin (mass per erythrocyte) 29 pg 25-34 Automated erythrocyte mean corpuscular hemoglobin concentration measurement ( mass/volume) 32 g/dL 32-36 Automated erythrocyte distribution width ratio 14.8 % 10.0-14.5 Automated blood platelet count (count/volume) 196 10*3/uL 130-400 Automated blood platelet mean volume measurement 9.6 [foz_us ] 7.4-10.4 Comprehensive metabolic panel - 04/18/17 09:02 Serum or plasma sodium measurement (moles/volume) 129 mmol/ L 135-145 Serum or plasma potassium measurement (moles/volume) 4.2 mmol/L 3.6-5.0 Serum or plasma chloride measurement (moles/volume) 97 mmol/ L 98-107 Carbon dioxide 24 mmol/L 21-32 Serum or plasma anion gap determination (moles/volume) 8 mmol/L 5-14 Serum or plasma urea nitrogen measurement (mass/volume) 4 mg /dL 7-18 Serum or plasma creatinine measurement (mass/volume) 0.58 mg /dL 0.60-1.30 Serum or plasma urea nitrogen/creatinine mass ratio 7 NRG Serum or plasma creatinine measurement with calculation of estimated glomerular filtration rate > NRG Serum or plasma glucose measurement (mass/volume) 115 mg/dL 70-105 Serum or plasma calcium measurement (mass/volume) 8.1 mg/dL 8.5-10.1 Serum or plasma total bilirubin measurement (mass/volume) 1.0 mg/dL 0.1-1.0 Serum or plasma alkaline phosphatase measurement (enzymatic activity/volume) 133 U/L 40-136 Serum or plasma aspartate aminotransferase measurement (enzymatic activity/ volume) 31 U/L 5-34 Serum or plasma alanine aminotransferase measurement (enzymatic activity/volume ) 26 U/L 0-55 Serum or plasma protein measurement (mass/volume) 6.8 g/dL 6.4-8.2 Serum or plasma albumin measurement (mass/volume) 3.5 g/dL 3.2-4.5 Automated blood complete blood count (hemogram) panel - 04/19/17 04:09 Blood leukocytes automated count (number/volume) 6.5 10*3/ uL 4.3-11.0 Blood erythrocytes automated count (number/volume) 5.09 10*6 /uL 4.35-5.85 Venous blood hemoglobin measurement (mass/volume) 14.6 g/dL 11.5-16.0 Blood hematocrit (volume fraction) 46 % 35-52 Automated erythrocyte mean corpuscular volume 91 [foz_us] 80-99 Automated erythrocyte mean corpuscular hemoglobin (mass per erythrocyte) 29 pg 25-34 Automated erythrocyte mean corpuscular hemoglobin concentration measurement ( mass/volume) 32 g/dL 32-36 Automated erythrocyte distribution width ratio 14.7 % 10.0-14.5 Automated blood platelet count (count/volume) 224 10*3/uL 130-400 Automated blood platelet mean volume measurement 9.7 [foz_us ] 7.4-10.4 Automated blood complete blood count (hemogram) panel - 04/22/17 04:50 Blood leukocytes automated count (number/volume) 4.4 10*3/ uL 4.3-11.0 Blood erythrocytes automated count (number/volume) 4.89 10*6 /uL 4.35-5.85 Venous blood hemoglobin measurement (mass/volume) 13.9 g/dL 11.5-16.0 Blood hematocrit (volume fraction) 44 % 35-52 Automated erythrocyte mean corpuscular volume 90 [foz_us] 80-99 Automated erythrocyte mean corpuscular hemoglobin (mass per erythrocyte) 28 pg 25-34 Automated erythrocyte mean corpuscular hemoglobin concentration measurement ( mass/volume) 32 g/dL 32-36 Automated erythrocyte distribution width ratio 14.6 % 10.0-14.5 Automated blood platelet count (count/volume) 249 10*3/uL 130-400 Automated blood platelet mean volume measurement 9.4 [foz_us ] 7.4-10.4 Comprehensive metabolic panel - 04/22/17 04:50 Serum or plasma sodium measurement (moles/volume) 129 mmol/ L 135-145 Serum or plasma potassium measurement (moles/volume) 4.1 mmol/L 3.6-5.0 Serum or plasma chloride measurement (moles/volume) 96 mmol/ L 98-107 Carbon dioxide 25 mmol/L 21-32 Serum or plasma anion gap determination (moles/volume) 8 mmol/L 5-14 Serum or plasma urea nitrogen measurement (mass/volume) 6 mg /dL 7-18 Serum or plasma creatinine measurement (mass/volume) 0.61 mg /dL 0.60-1.30 Serum or plasma urea nitrogen/creatinine mass ratio 10 NRG Serum or plasma creatinine measurement with calculation of estimated glomerular filtration rate > NRG Serum or plasma glucose measurement (mass/volume) 93 mg/dL 70-105 Serum or plasma calcium measurement (mass/volume) 8.3 mg/dL 8.5-10.1 Serum or plasma total bilirubin measurement (mass/volume) 0.7 mg/dL 0.1-1.0 Serum or plasma alkaline phosphatase measurement (enzymatic activity/volume) 126 U/L 40-136 Serum or plasma aspartate aminotransferase measurement (enzymatic activity/ volume) 33 U/L 5-34 Serum or plasma alanine aminotransferase measurement (enzymatic activity/volume ) 31 U/L 0-55 Serum or plasma protein measurement (mass/volume) 6.4 g/dL 6.4-8.2 Serum or plasma albumin measurement (mass/volume) 3.4 g/dL 3.2-4.5 Encounters ACCT No. Visit Date/Time Discharge Status Pt. Type Provider Facility Loc./Unit Complaint [id number] 04/14/2017 08:23:00 2016 08:18:00 DIS Inpatient CAMERON PALACIOS, JOYCE Calderon [facility] 4TH HEADACHE HYPERTENSION [id number] 04/14/2017 06:07:00 2016 06:07:00 CAN Preadmit ISAURO RAINES DO [facility] ER BP [id number] 03/03/2015 17:51:00 2014 20:27:00 DIS Emergency CARMITA PALACIOS, DONOVAN Mckeon [facility] ER HIGH BP [id number] 01/16/2015 16:16:00 2014 23:59:59 CLS Outpatient RADHA BURDICK MD [facility] RAD PAIN RIGHT HIP [id number] 03/16/2014 15:00:00 2013 14:15:00 DIS Inpatient JOSÉ LUIS WRIGHT MD [facility] IRF PELVIC FX,FALL, HYPONATREMIA [id number] 03/12/2014 21:17:00 2013 15:00:00 DIS Inpatient RADHA BURDICK MD [facility] 4TH PELVIC FRACTURE, FALL, HYPONATREMIA, HEMATOMA, LAC [id number] 02/28/2014 11:54:00 2013 23:59:59 CLS Outpatient BERNARDINO SAUCEDA MD [facility] CARD T-11/L-2 COMPRESSION FX [id number] 01/18/2014 14:29:00 2013 15:30:00 DIS Inpatient RADHA BURDICK MD [facility] 4TH COMPRESSION FX L1 [id number] 01/13/2014 10:14:00 2013 23:59:59 CLS Outpatient RADHA BURDICK MD [facility] RAD SEVERE LBP [id number] 01/04/2014 12:03:00 2013 23:59:59 CLS Outpatient RADHA BURDICK MD [facility] RAD PERSISTANT LOW BACK PAIN [id number] 06/07/2013 09:38:00 2012 23:59:59 CLS Outpatient RADHA BURDICK MD [facility] RAD SCREENING [id number] 04/18/2017 08:43:00 ACT Inpatient JOYCE BARNES MD [facility] 4TH SWB [id number] 03/31/2017 13:01:00 ACT Outpatient JOYCE BARNES MD [facility] SDC OSTEOPOROSIS M81.0 [id number] 03/07/2015 10:06:00 Document Registration [id number] 06/04/2012 09:21:00 Document Registration [id number] 04/27/2010 08:47:00 Document Registration
--- OUTSIDE RECORDS SUMMARY | 2017-04-24 11:44 | XMS REPORT | Continuity of Care Document ---
Author Author [facility] Organization [facility] Address Unknown Phone Unavailable Allergies Active Description Code Type Severity Reaction Onset Reported/Identified Relationship to Patient Clinical Status Yes No Known Drug Allergies [id number] Drug Allergy Unknown N/ A 01/18/2014 Medications Problems Date Dx Coded Attending Type Code Diagnosis Diagnosed By 01/25/2014 RADHA BURDICK MD Ot 276.1 HYPOSMOLALITY 01/25/2014 RADHA BURDICK MD Ot 298.2 REACTIVE CONFUSION 01/25/2014 RADHA BURDICK MD Ot 414.01 CORONARY ATHEROSCLEROSIS OF [place] CORON 01/25/2014 RADHA BURDICK MD Ot 722.52 [...] BURDICK MD Ot 414.01 CORONARY ATHEROSCLEROSIS OF [place] CORON 03/16/2014 RADHA BURDICK MD Ot 716.90 [...] WRIGHT MD Ot 414.01 CORONARY ATHEROSCLEROSIS OF [place] CORON 03/31/2014 JOSÉ LUIS WRIGHT MD Ot [...] 03/07/2015 RADHA BURDICK MD Ot E849.0 03/07/2015 RDAHA BURDICK MD Ot E888.9 03/27/2017 Ot V76.12 [...] DO NOT RESUSCITATE 04/17/2017 CAMERON PALACIOS, JOYCE Caledron Ot Z91.81 HISTORY OF FALLING 04/18/2017 JOYCE [...] Status Pt. Type Provider Facility Loc./Unit Complaint [id number] 04/14/2017 08:23:00 2016 08:18:00 DIS Inpatient CAMERON PALACIOS, JOYCE Calderon [facility] 4TH HEADACHE HYPERTENSION [id number] 04/14/2017 06:07:00 2016 06:07:00 CAN Preadmit ISAURO RAINES DO [facility] ER BP [id number] 03/03/2015 17:51:00 2014 20:27:00 DIS Emergency CARMITA PALACIOS, DONOVAN Mckeon [facility] ER HIGH BP [id number] 01/16/2015 16:16:00 2014 23:59:59 CLS Outpatient RADHA BURDICK MD [facility] RAD PAIN RIGHT HIP [id number] 03/16/2014 15:00:00 2013 14:15:00 DIS Inpatient JOSÉ LUIS WRIGHT MD [facility] IRF PELVIC FX,FALL, HYPONATREMIA [id number] 03/12/2014 21:17:00 2013 15:00:00 DIS Inpatient RADHA BURDICK MD [facility] 4TH PELVIC FRACTURE, FALL, HYPONATREMIA, HEMATOMA, LAC [id number] 02/28/2014 11:54:00 2013 23:59:59 CLS Outpatient BERNARDINO SAUCEDA MD [facility] CARD T-11/L-2 COMPRESSION FX [id number] 01/18/2014 14:29:00 2013 15:30:00 DIS Inpatient RADHA BURDICK MD [facility] 4TH COMPRESSION FX L1 [id number] 01/13/2014 10:14:00 2013 23:59:59 CLS Outpatient RADHA BURDICK MD [facility] RAD SEVERE LBP [id number] 01/04/2014 12:03:00 2013 23:59:59 CLS Outpatient RADHA BURDICK MD [facility] RAD PERSISTANT LOW BACK PAIN [id number] 06/07/2013 09:38:00 2012 23:59:59 CLS Outpatient RADHA BURDICK MD [facility] RAD SCREENING [id number] 04/18/2017 08:43:00 ACT Inpatient JOYCE BARNES MD [facility] 4TH SWB [id number] 03/31/2017 13:01:00 ACT Outpatient JOYCE BARNES MD [facility] SDC OSTEOPOROSIS M81.0 [id number] 03/07/2015 10:06:00 Document Registration [id number] 06/04/2012 09:21:00 Document Registration [id number] 04/27/2010 08:47:00 Document Registration
--- OUTSIDE RECORDS SUMMARY | 2017-04-24 11:45 | XMS REPORT | Continuity of Care Document ---
Author Author [facility] Organization [facility] Address Unknown Phone Unavailable Allergies Active Description Code Type Severity Reaction Onset Reported/Identified Relationship to Patient Clinical Status Yes No Known Drug Allergies [id number] Drug Allergy Unknown N/ A 01/18/2014 Medications Problems Date Dx Coded Attending Type Code Diagnosis Diagnosed By 01/25/2014 RADHA BURDICK MD Ot 276.1 HYPOSMOLALITY 01/25/2014 RADHA BURDICK MD Ot 298.2 REACTIVE CONFUSION 01/25/2014 RADHA BURDICK MD Ot 414.01 CORONARY ATHEROSCLEROSIS OF [place] CORON 01/25/2014 RADHA BURDICK MD Ot 722.52 [...] BURDICK MD Ot 414.01 CORONARY ATHEROSCLEROSIS OF [place] CORON 03/16/2014 RADHA BURDICK MD Ot 716.90 [...] WRIGHT MD Ot 414.01 CORONARY ATHEROSCLEROSIS OF [place] CORON 03/31/2014 JOSÉ LUIS WRIGHT MD Ot [...] NOSP (ABN) FINDINGS RADIOLOGICAL O 03/27/2017 RADHA UBRDICK MD Ot V71.89 OBSERVE SUSPECT OTH SPECIFIED [...] MD Ot M54.9 DORSALGIA, UNSPECIFIED 04/17/2017 JOYCE BRANES MD Ot M81.0 AGE-RELATED OSTEOPOROSIS W/O CURRENT [...] Status Pt. Type Provider Facility Loc./Unit Complaint [id number] 04/14/2017 08:23:00 2016 08:18:00 DIS Inpatient CAMERON PALACIOS, JOYCE Calderon [facility] 4TH HEADACHE HYPERTENSION [id number] 04/14/2017 06:07:00 2016 06:07:00 CAN Preadmit ISAURO RAINES DO [facility] ER BP [id number] 03/03/2015 17:51:00 2014 20:27:00 DIS Emergency CARMITA PALACIOS, DONOVAN Mckeon [facility] ER HIGH BP [id number] 01/16/2015 16:16:00 2014 23:59:59 CLS Outpatient RADHA BURDICK MD [facility] RAD PAIN RIGHT HIP [id number] 03/16/2014 15:00:00 2013 14:15:00 DIS Inpatient JOSÉ LUIS WRIGHT MD [facility] IRF PELVIC FX,FALL, HYPONATREMIA [id number] 03/12/2014 21:17:00 2013 15:00:00 DIS Inpatient RADHA BURDICK MD [facility] 4TH PELVIC FRACTURE, FALL, HYPONATREMIA, HEMATOMA, LAC [id number] 02/28/2014 11:54:00 2013 23:59:59 CLS Outpatient BERNARDINO SAUCEDA MD [facility] CARD T-11/L-2 COMPRESSION FX [id number] 01/18/2014 14:29:00 2013 15:30:00 DIS Inpatient RADHA BURDICK MD [facility] 4TH COMPRESSION FX L1 [id number] 01/13/2014 10:14:00 2013 23:59:59 CLS Outpatient RADHA BURDICK MD [facility] RAD SEVERE LBP [id number] 01/04/2014 12:03:00 2013 23:59:59 CLS Outpatient RADHA BURDICK MD [facility] RAD PERSISTANT LOW BACK PAIN [id number] 06/07/2013 09:38:00 2012 23:59:59 CLS Outpatient RADHA BURDICK MD [facility] RAD SCREENING [id number] 04/18/2017 08:43:00 ACT Inpatient JOYCE BARNES MD [facility] 4TH SWB [id number] 03/31/2017 13:01:00 ACT Outpatient JOYCE BARNES MD [facility] SDC OSTEOPOROSIS M81.0 [id number] 03/07/2015 10:06:00 Document Registration [id number] 06/04/2012 09:21:00 Document Registration [id number] 04/27/2010 08:47:00 Document Registration
== END 2017-04-18 08:18 | disposition swing bed (61) | DRG 193 ==
LOC: ER 08:22 → 4TH 08:23 → UNDODISIN 04-17 15:18 → EDPENDDISTM 04-18 08:10 → ENPENDDIS 04-18 08:20
PROVIDERS: ADMIT Family Medicine; ATTEND Family Medicine
DX: J18.9 Pneumonia, unspecified organism (principal); N30.00 Acute cystitis without hematuria; J81.0 Acute pulmonary edema; I16.0 Hypertensive urgency; E87.1 Hypo-osmolality and hyponatremia; R00.1 Bradycardia, unspecified; Z66 Do not resuscitate; F41.9 Anxiety disorder, unspecified; F32.9 Major depressive disorder, single episode, unspecified; S81.819A Laceration without foreign body, unspecified lower leg, initial encounter; H91.92 Unspecified hearing loss, left ear; F03.90 Unspecified dementia, unspecified severity, without behavioral disturbance, psychotic disturbance, mood disturbance, and anxiety; M81.0 Age-related osteoporosis without current pathological fracture; M19.91 Primary osteoarthritis, unspecified site; K59.09 Other constipation; H40.9 Unspecified glaucoma; M54.9 Dorsalgia, unspecified; Z91.81 History of falling; W19.XXXA Unspecified fall, initial encounter
CPT/HCPCS: 36415; 51702; 70450; 71010; 71020; 80053; 81000; 83605; 83880; 84484; 85025; 85027; 85610; 85730; 87040; 87088; 93005; 94640; 94760; 96361; 96374; 96375

== ENCOUNTER 2017-04-18 08:43 | Inpatient (IN) | payer MEDICARE ==
[~2017-04-18] VITALS: Ht 165.1 cm; Wt 66.5 kg
[2017-04-18 08:00] VITALS: BP 164/78
[~2017-04-18 08:43] MED LIST changes: +ACET-2422 PO; +ASCO500T6 PO; +BRIM5DRO OD; +CHOL20003 PO; +CLOP75TA28 PO; +DENO60DI SQ; +DICL100G18 TP; +DOCU100C37 PO; +ESCI20TA45 PO; +LISI-552 PO; +METH35.42 TP; +PROP10DR9 OS; +TRAV5DRO OU; +VIT1CAPS44 PO
[2017-04-18] MEDS ORDERED: DOCUSATE SODIUM 100 MG (COLACE) CAP PO PRN (08:45)
[2017-04-18] MEDS ORDERED: DICLOFENAC 1% GEL 100 GM (VOLTAREN) TUBE TP PRN (08:45)
[2017-04-18] MEDS ORDERED: ALPRAZolam 0.25 MG (XANAX) TAB PO PRN (08:45)
[2017-04-18] MEDS ORDERED: RT-ALBUTEROL SULF 2.5 MG/3 ML PRE-MIX VIAL IH PRN (08:45)
[2017-04-18] MEDS ORDERED: hydrALAZINE (APRESOLINE) 25 MG TAB PO SCH (08:45)
[2017-04-18] MEDS ORDERED: hydrALAZINE (APESOLINE) 20 MG/ML VIAL IV PRN (08:45)
[2017-04-18] MEDS ORDERED: CATHETER FLUSH 10 ML SYR IV PRN (08:45)
[2017-04-18 09:09] LABS: MEAN PLATELET VOLUME 9.6 FL (7.4-10.4); RED BLOOD COUNT 5.01 10^6/uL (4.35-5.85); RED CELL DISTRIBUTION WIDTH 14.8 % (10.0-14.5); WHITE BLOOD COUNT 6.7 10^3/uL (4.3-11.0)
[2017-04-18] MEDS ORDERED: ACETAMINOPHEN 500 MG TAB (TYLENOL) PO PRN (09:30)
[2017-04-18 09:33] LABS: ALANINE AMINOTRANSFERASE 26 U/L (0-55); ALBUMIN 3.5 GM/DL (3.2-4.5); ANION GAP 8 MMOL/L (5-14); ASPARTATE AMINO TRANSFERASE 31 U/L (5-34); BLOOD UREA NITROGEN 4 MG/DL (7-18); BUN/CREATININE RATIO 7; CALCIUM 8.1 MG/DL (8.5-10.1); CARBON DIOXIDE 24 MMOL/L (21-32); CHLORIDE 97 MMOL/L (98-107); CREATININE SERUM 0.58 MG/DL (0.60-1.30); GFR ESTIMATED > 60; GLUCOSE 115 MG/DL (70-105); POTASSIUM 4.2 MMOL/L (3.6-5.0); SODIUM 129 MMOL/L (135-145); TOTAL PROTEIN 6.8 GM/DL (6.4-8.2)
[2017-04-18] MEDS ORDERED: cefTRIAXone 1 GM (ROCEPHIN) VIAL ONE (09:53)
[2017-04-18] MEDS ORDERED: NS (IVPB) 50 ML ONE (09:53)
[2017-04-18] MEDS ORDERED: CHLORASEPTIC LOZENGE MM PRN (10:00)
[2017-04-18] MEDS: RT-ALBUTEROL SULF 2.5 MG/3 ML PRE-MIX VIAL IH SCH ×3 (10:10→19:03)
[2017-04-18] MEDS: AZITHROMYCIN 250 MG TAB (ZITHROMAX) PO SCH (10:16)
[2017-04-18] MEDS: hydrALAZINE (APRESOLINE) 25 MG TAB PO SCH ×3 (10:16→21:13)
[2017-04-18] MEDS: SENNA W/DOCUSATE (SENOKOT S) TABLET PO SCH ×2 (10:16→21:12)
[2017-04-18] MEDS: CLOPIDOGREL 75 MG (PLAVIX) TABLET PO SCH (10:16)
[2017-04-18] MEDS: ARTIFICAL TEARS 0.4 ML UNIT DOSE (REFRESH PLUS) OS SCH ×2 (10:17→21:11)
[2017-04-18] MEDS: ENOXAPARIN 40 MG/0.4 ML (LOVENOX) SYR SC SCH (10:17)
[2017-04-18] MEDS: lisINopril 20 MG (ZESTRIL) TAB PO SCH (10:17)
[2017-04-18] MEDS: CATHETER FLUSH 10 ML SYR IV SCH ×2 (10:54→21:12)
[2017-04-18] MEDS: TIMOLOL MALEATE 0.5% 5 ML (TIMOPTIC) BTL OU SCH ×2 (10:54→21:10)
[2017-04-18] MEDS: BRIMONIDINE 0.2% (ALPHAGAN) OPHTH SOLN 5 ML BTL OU SCH ×2 (10:55→21:10)
[2017-04-18 12:00] VITALS: BP 144/66
--- NOTE | 2017-04-18 12:59 | Occupational Therapy Eval ---
OT Evaluation-General/PLF Medical Diagnosis Admission Date Apr 18, 2017 at 08:43 Medical Diagnosis: Malignant hypertension, UTI Onset Date: Apr 14, 2017 Therapy Diagnosis Therapy Diagnosis: decreased self care skills Height/Weight Height (Feet): 5 Height (Inches): 5.00 Weight (Pounds): 146 Weight (Ounces): 8.0 Referral Physician: Caden Medical History Pertinent Medical History: Arthritis, Dementia, HTN Additional Medical History chronic constipation, kyphoplasty, pelvic fracture, osteoporosis, chronic back pain, glaucoma, [place], detached retina repair Reviewed History: Yes Social History Home: Single Level Current Living Status: Children (daughters) Entry Into Home: Stairs With Railing Steps Into Home: 3 ADL-Prior Level of Function ADL PLOF Comments Pt and daughter state pt is able to complete most basic self care tasks. Has supervision for bathing and dressing and assist if needed. Uses FWW for mobility. DME/Equipment: Bath Bench, Bedside Commode (over toilet), Grab Bars, Tall Toilet, Tub/Shower OT Current Status Subjective Pt in bed with daughter present, agrees to therapy. Pt states her throat hurts, but no other complaints of pain. Mental Status/Objective Patient Orientation: Person Attachments: Oxygen Current Glasses/Contacts: Yes Hearing Aids: Yes Dentures/Partials: Yes Hand Dominance: Right Upper Extremity ROM decreased bilateral shoulder ROM Upper Extremity Coordination Fair Upper Extremity Strength distally grossly 4/5 ADL-Treatment ADL-Current Pt supine to sit with minimal assistance, requires assist to scoot to EOB. Sit to stand with minimal assistance. Transfer to [facility] [place] [place] with min assist and skilled cues for safety using FWW. Daughter assisted pt with clothing management and hygiene. Transfer to chair with minimal assistance. Assist to steer walker safely. Pt participated in UE assessment while seated. Pt sitting in chair with needs met and daughter present after session. Functional [place] Measure 0=Not Assessed/NA 4=Minimal Assistance 1=Total Assistance 5=Supervision or Setup 2=Maximal Assistance 6=Modified [place] 3=Moderate Assistance 7=Complete IndependenceIRFPAI Quality Coding Scale 6 Independent with activity with or without an assistive device 5 Patient requires set up or clean up by helper. Patient completes activity by themselves 4 Supervision or touching assist (CGA). [place] provide cues , steadying assist 3 The helper provides less than half the effort to complete the activity 2 The helper provides more than half the effort to complete the activity 1 Dependent. The helper does all the effort to complete an activity 7 Patient refused to complete or attempt activity 9 The patient did not perform the activity before the current illness or injury 88 Not attempted due to Medical conditions or safety concerns Eating (FIM): 5 (Daughter repots pt is able to feed self after set up) Eating (QC): 5 Toileting (FIM): 2 Toileting Hygiene (QC): 2 Toilet/Commode Transfer (FIM): 4 Toilet Transfer (QC): 3 Education OT Patient Education: Rehab process Teaching Recipient: Patient Teaching Methods: Discussion Response to Teaching: Reinforcement Needed OT Short Term Goals Short Term Goals 1=Demonstrate adherence to instructed precautions during ADL tasks. 2=Patient will verbalize/demonstrate understanding of assistive devices/ modifications for ADL. 3=Patient will improve strength/tolerance for activity to enable patient to perform ADL's. OT Risk Assessor Goals Alf Goals Time Frame: May 02, 2017 Eating (FIM): 6 Eating (QC): 6 Groomin Oral Hygiene (QC): 5 Upper Body Dressing(FIM): 5 Lower Body Dressing(FIM): 5 Toileting(FIM): 5 Toileting Hygiene (QC): 5 Toilet/Commode Transfer(FIM): 5 Toilet/Commode Transfer (QC): 5 Additional Goals: 1-Demonstrate ADL Tasks, 2-Verbalize Understanding, 3- ImproveStrength/Yeimy 1=Demonstrate adherence to instructed precautions during ADL tasks. 2=Patient will verbalize/demonstrate understanding of assistive devices/ modifications for ADL. 3=Patient will improve strength/tolerance for activity to enable patient to perform ADL's. OT Education/Plan Problem List/Assessment Assessment: Decreased Activ Tolerance, Decreased Safety Aware, Decreased UE Strength, Dependent Transfers, Impaired Self-Care Skills Pt to benefit from skilled OT intervention for ADL training, transfers, strengthening, and safety education to maximize level of function and allow safe discharge plan. Discharge Recommendations Plan/Recommendations: Continue POC Treatment Plan/Plan of Care Treatment,Training & Education: Yes Patient would benefit from OT for education, treatment and training to promote independence in ADL's, mobility, safety and/or upper extremity function for ADL' s. Plan of Care: ADL Retraining, Functional Mobility, UE Funct Exercise/Act Treatment Duration: May 02, 2017 Frequency: 5 times per week Estimated Hrs Per Day: .5 hour per day Rehab Potential: Fair Time/GCodes Start Time: 11:06 Stop Time: 11:29 Total Time Billed (hr/min): 23 Billed Treatment Time 1 visit, EVL(8minutes), ADL(15minutes) DENISA MELLO OT Apr 18, 2017 12:59
--- NOTE | 2017-04-18 13:41 | Physical Therapy Evaluation ---
PT Evaluation-General Medical Diagnosis Admission Date Apr 18, 2017 at 08:43 Medical Diagnosis: Malignant hypertension, UTI Onset Date: Apr 14, 2017 Therapy Diagnosis Therapy Diagnosis: impaired mobility, strength, endurance Height/Weight Height (Feet): 5 Height (Inches): 5.00 Weight (Pounds): 146 Weight (Ounces): 8.0 Referral Physician: Caden Reason for Referral: Evaluation/Treatment Medical History Pertinent Medical History: Arthritis, Dementia, HTN Additional Medical History has had falls at home Current History ED secondary to elevated BP and c/o [place] Hypoxia Reviewed History: Yes Social History Home: Single Level Current Living Status: Children (daughters) Entry Into Home: Stairs With Railing PT Steps Into Home: 3 Prior/Core FIM Prior Level of Function Functional [place] Measure 0=Not Assessed/NA 4=Minimal Assistance 1=Total Assistance 5=Supervision or Setup 2=Maximal Assistance 6=Modified [place] 3=Moderate Assistance 7=Complete [place] Bed Mobility: 5 Transfers (B,C,W/C) (FIM): 5 Gait: 5 family assisted with ADL's and mobility PT Evaluation-Current Subjective Patient in recliner pre tx, agrees to PT, has no complaints of pain. Pt/Family Goals "to get stronger" Objective Patient Orientation: Confused Attachments: Oxygen 2L of O2 nasal canula ROM/Strength ROM Lower Extremities WNL Strenght Lower Extremities 4+/5 gross bilateral lower extremities Neuromuscular (Tone, Coordination, Reflexes) WNL Sensory Vision: Wears Glasses Hearing: Impaired Hand Dominance: Right Sensation Right Lower Extremit: Intact Sensation Left Lower Extremity: Intact Transfers Functional [place] Measure 0=Not Assessed/NA 4=Minimal Assistance 1=Total Assistance 5=Supervision or Setup 2=Maximal Assistance 6=Modified [place] 3=Moderate Assistance 7=Complete [place] Transfers (B, C, W/C) (FIM): 4 Sit to/from Stand: 4 Patient performs a sit to stand transfer with CGA, she did stand appropriately using her hands on the armrests Gait Does the Patient Walk?: Yes Mode of Locomotion: Walk Anticipated Mode of Locomotion: Walk Gait (FIM): 4 Distance: 300' Walk 50 ft with 2 Turns(QC): 4 Walk 150 ft (QC): 4 Gait Level of Assist: 4 Gait Persons Needed: 1 Gait Assistive Device: FWW Comments/Gait Description Patient ambulated 300' with a rolling walker with CGA, cues for safety and direction. She does get distracted easily. No SOB Balance Sitting Static: Normal Sitting Dynamic: Normal Standing Static: Good Standing Dynamic: Good Treatment seated exercises x10 (AP, LAQ, hip flexion) Assessment/Needs Patient has impaired mobility, strength, endurance, easily distracted, needs cues for safety and direction. Rehab Potential: Fair PT Painter Foreman Goals Long-Term Goals PT Painter Foreman Goals Time Frame: Apr 25, 2017 Transfers (B,C,W/C) (FIM): 5 Sit to Lying (QC): 4 Lying-Sitting on Side/Bed(QC): 4 Sit to Stand (QC): 4 Rollin Chair/Axi-pv-Qydek Xfer(QC): 4 Gait (FIM): 5 Distance: 300' Walk 50ft with 2 Turns (QC): 4 Walk 150 ft (QC): 4 Gait Level of Assist: 5 Gait Assistive Device: FWW PT Plan Problem List Problem List: Activity Tolerance, Functional Strength, Safety, Balance, Gait, Transfer, Bed Mobility Treatment/Plan Treatment Plan: Continue Plan of Care Treatment Plan: Bed Mobility, Education, Functional Activity Yeimy, Functional Strength, Gait, Safety, Therapeutic Exercise, Transfers Treatment Duration: Apr 25, 2017 Frequency: 6 times per week Estimated Hrs Per Day: .25 hour per day (15-30 min) Patient and/or Family Agrees t: Yes Safety Risks/Education Patient Education: Gait Training, Transfer Techniques, Correct Positioning, Safety Issues Teaching Recipient: Patient Teaching Methods: Demonstration, Discussion Response to Teaching: Reinforcement Needed Discharge Recommendations Plan Patient will perform bed mobility and transfers, balance and endurance training , functional strengthening, stair training, gait training, and education, to improve functional mobility and independence at home. Therapy D/C Recommendations: Home w/ Family Support Time/GCodes Time In: 1310 Time Out: 1340 Total Billed Treatment Time: 30 Total Billed Treatment 1 visit EVL 15' GT 15' MURALI RIVERA PT Apr 18, 2017 13:41
--- NOTE | 2017-04-18 15:02 | ST Dysphagia Evaluation ---
Speech Evaluation-General Medical Diagnosis Malignant hypertension, UTI Onset Date: Apr 14, 2017 Therapy Diagnosis Therapy Diagnosis: Moderate to Severe Oropharyngeal Dysphagia Precautions Precautions: Aspiration Referral Referring Physician: Dr. Xuan Negrete Reason for Referral: Evaluation/Treatment Bedside Swallowing Evaluation Medical History Pertinent Medical History: Arthritis, Dementia, HTN Reviewed History: Yes Social History Current Living Status: Children (daughters) Speech PLF/Current-Dysphagia Prior Level of Function Per patient and patient's daughter (who was present at bedside and for the duration of the evaluation), the patient has demonstrated recent coughing and choking on food and liquid consistencies. Per patient's daughter, the difficulty fluctuates and can present differently on different days. The patient consumes a regular diet with thin liquids at home. Subjective The patient was recently admitted to [facility] ([facility]) with an UTI. The patient was evaluated by this speech pathologist on the acute unit two days prior and provided swallowing precautions and strategies. At that time, the patient remained on a regular diet with thin liquids. The clinician followed up with the patient yesterday, 04/18/17, however, she was not feeling well. Per patient's daughter, the patient had not experienced any choking episodes. On this date, the speech pathologist is notified that the patient was choking throughout her breakfast meal. A request for re-evaluation was placed due to her [facility] status and a re-assessment was completed. Per patient's daughter, the patient has coughed and choked on everything today. Additionally, the patient stated she feels like something is lodged in her throat, "like a piece of candy or a pill." CXR: 04/16/2017: Stable bibasilar atelectatic change versus infiltrate. Cognitive Status Patient Orientation: Person, Place, Situation Oral Motor Skills Dentition: Edentalous Denture Type: Partial- Upper & Lower (Present for evaluation.) Current Food Consistancy: Regular, Thin Liquids Ability to Follow Directions: Good Oral Expression Ability: Mild Impairment Voice Voice Phonatory-Based Quality: Glottal Baum (Hypopharyngeal resonance is noted throughout conversation.) Voice Pitch: Mildly Low Voice Loudness: Normal Face Facial Symmetry: Symmetrical Oral-Facial Assessment Oral-Facial Dentition: Normal Labial Seal Description: Normal Smile: Normal Puff Cheeks: Normal Lingual Protrusion: Normal Lingual ROM: Normal Lingual Strength: Normal Pharynx Velopharyngeal Move.: Normal Volitional Dry Swallow: Yes (The patient reports odynophagia upon dry swallowing.) Dysphagia Evaluation Consistencies Presented: Thin Liquid, [place] Thick Liquid, Pureed Oral Phase: Reduced Oral Transit - The patient demonstrated intermittent difficulty transferring the bolus posterior in the oral cavity. The patient appeared to demonstrate fatigue and great effort. Pharyngeal Phase: Multiple Swallow Attempts, C/O Globus Sensation - The patient consistently reported the presence of a globus sensation in the laryngeal region. Per patient, "I just feel something right here. Like a piece of candy or pill is stuck." The globus sensation was not reduced with multiple liquid boluses. - The patient demonstrates consist "hacking" and throat clearing prior to bolus administration. The patient does present with hypopharyngeal resonance, as well as, a white coating consistent with oral candidiasis on the lingual surface. - Thin Liquid (Via Teaspoon): The patient demonstrated one throat clear following one of twelve bolus trials (teaspoon) of thin liquid. - [place]-Thick Liquid: The patient demonstrated consistent throat clearing following all (4/4) teaspoon trials of nectar-thick liquid. - Honey-Thick Liquid: The patient demonstrated consistent throat clearing following all (4/4) teaspoon trials of honey-thick liquid. - Puree: No signs/symptoms of aspiration were demonstrated with five teaspoon trials of puree consistency. * The patient consistently reported a globus sensation, as well as, presented with hypopharyngeal, back and bottom resonance. - The patient presents inconsistently with all bolus trials. Due to the patient' s vocal quality, consistent complaint of a globus sensation, and the presence of possible oral candidiasis, a referral to ENT is requested. Speech pathology is requesting direct visualization of the pharyngeal mucus membranes to ensure the oral candidiasis has not progressed into the pharynx and/or the presence of pharyngeal edema is not present resulting in pharyngitis, epiglottitis resulting in reduced area from swallowing musculature and bolus material. - Additionally, the patient has requested visualization of the lingual surface to ensure the white coating is not oral candidiasis. - A modified barium swallow has been scheduled for 04/21/17 at 11:00am to ensure aspiration is not occurring due to the inconsistent and fluctuating signs/ symptoms of aspiration, as well as, the presence of pneumonia. Dietary Recommendations: Pureed Liquid Recommendations: Thin (Via teaspoon, only.) Swallowing Precautions: Alternate Liquids/Solids, Decreased Bolus 1/4 Tsp, Liquids from Spoon, No Straw, Oral Supervision Staff, Oral Supervision Caregiver , Small Bites and Sips, Sitting 90 Degrees 30 Post Intake - Crush medication and place in puree consistency for administration. * To note, due to the fluctuating and inconsistent signs/symptoms of aspiration (intermittently present at bedside, however, absent at other times), the clinician is unable to state with certainty the above diet will not result in trace aspiration of material, however, appears to be the safest consistency at this time. This information was discussed with the patient's family, who verbalized comprehension. Certainty of the absence of aspiration cannot be concluded until a video swallow is completed. The most recent date a video swallow can be completed in Friday, April 21, 2017 at 11:00 am. Dysphagia Evaluation Summary The patient presents with suspected moderate to severe oropharyngeal dysphagia characterized by the consistent presence of globus sensation. Speech Short Term Goals Short Term Goals Short Term Goals 1. The patient will demonstrate swallowing strategies with 90% accuracy with moderate clinician verbal cueing. Time Frame-STG: Five Days Speech Transcripter Goals Transcripter Goals 1. The patient will tolerate the least restrictive diet without signs/symptoms of aspiration or laryngeal penetration. Time Frame: One Week Speech-Plan Treatment Plan Speech Therapy Treatment Plan: Continue Plan of Care Continue skilled speech pathology to reduce aspiration risks with PO intake and provide appropriate swallowing strategies. Frequency: 4 times per week Estimated Hrs Per Day: .25 hour per day Rehab Potential: Fair Safety Risks/Education Teaching Recipient: Patient, Family Teaching Methods: Discussion Response to Teaching: Verbalize Understanding Education Topics Provided: - Results, Recommendations, Signs/Symptoms of Aspiration, Swallowing Strategies Time Speech Therapy Time In: 14:10 Speech Therapy Time Out: 14:50 Total Billed Time: 40 Billed Treatment Time 1 MARY SOLORZANO Apr 18, 2017 15:02
[2017-04-18] MEDS: TROSPIUM 20 MG (SANCTURA) TAB PO SCH (16:25)
[2017-04-18 16:35] VITALS: BP 170/78
[2017-04-18 20:00] VITALS: BP 156/77
[2017-04-18] MEDS: LATANOPROST 0.005% (XALATAN) OPHTH SOLN 2.5 ML OU SCH (21:11)
[2017-04-19] VITALS (8 sets, daily range): BP systolic 125–186; BP diastolic 65–82
[2017-04-19] MEDS: hydrALAZINE (APRESOLINE) 25 MG TAB PO SCH ×4 (03:47→21:33)
[2017-04-19 04:36] LABS: MEAN PLATELET VOLUME 9.7 FL (7.4-10.4); RED BLOOD COUNT 5.09 10^6/uL (4.35-5.85); RED CELL DISTRIBUTION WIDTH 14.7 % (10.0-14.5); WHITE BLOOD COUNT 6.5 10^3/uL (4.3-11.0)
[2017-04-19] MEDS: CATHETER FLUSH 10 ML SYR IV SCH ×3 (06:05→21:34)
[2017-04-19] MEDS: TROSPIUM 20 MG (SANCTURA) TAB PO SCH ×2 (06:05→16:28)
[2017-04-19] MEDS: RT-ALBUTEROL SULF 2.5 MG/3 ML PRE-MIX VIAL IH SCH ×4 (06:28→18:53)
[2017-04-19] MEDS: ENOXAPARIN 40 MG/0.4 ML (LOVENOX) SYR SC SCH (09:55)
[2017-04-19] MEDS: TIMOLOL MALEATE 0.5% 5 ML (TIMOPTIC) BTL OU SCH ×2 (09:55→20:08)
[2017-04-19] MEDS: cefTRIAXone INJECTION 1,000 MG in NS (IVPB) 50 ML IV SCH (09:55)
[2017-04-19] MEDS: CLOPIDOGREL 75 MG (PLAVIX) TABLET PO SCH (09:55)
[2017-04-19] MEDS: ARTIFICAL TEARS 0.4 ML UNIT DOSE (REFRESH PLUS) OS SCH ×2 (09:55→20:07)
[2017-04-19] MEDS: AZITHROMYCIN 250 MG TAB (ZITHROMAX) PO SCH (09:55)
[2017-04-19] MEDS: lisINopril 20 MG (ZESTRIL) TAB PO SCH (09:55)
[2017-04-19] MEDS: BRIMONIDINE 0.2% (ALPHAGAN) OPHTH SOLN 5 ML BTL OU SCH ×2 (09:56→20:08)
--- NOTE | 2017-04-19 09:58 | Physical Therapy Daily Note ---
PT Daily Note-Current Subjective Pt. up in chair with daughter present, denies any pain. Mental Status Patient Orientation: Person, Place Attachments: Oxygen (2L) Transfers Functional [place] Measure 0=Not Assessed/NA 4=Minimal Assistance 1=Total Assistance 5=Supervision or Setup 2=Maximal Assistance 6=Modified [place] 3=Moderate Assistance 7=Complete IndependenceIRFPAI Quality Coding Scale 6 Independent with activity with or without an assistive device 5 Patient requires set up or clean up by helper. Patient completes activity by themselves 4 Supervision or touching assist (CGA). [place] provide cues , steadying assist 3 The helper provides less than half the effort to complete the activity 2 The helper provides more than half the effort to complete the activity 1 Dependent. The helper does all the effort to complete an activity 7 Patient refused to complete or attempt activity 9 The patient did not perform the activity before the current illness or injury 88 Not attempted due to Medical conditions or safety concerns Transfers (B, C, W/C) (FIM): 4 Sit to/from Stand: 4 Gait Training Does the Patient Walk?: Yes Distance (FIM): 3=150 ft Distance: 250 ft Gait Level of Assist: 4 Gait Persons Needed: 1 Gait Assistive Device: FWW slow but steady gait, kyphotic posture Exercises Seated Therapy Exercises: Ankle pumps, Sit to stand (5 reps), Long arc quads, Hip flexion, Hip abd/add Seated Reps: 20 Treatments Leg exercises, gait Assessment Current Status: Good Progress Pt. did very well with gait and leg exercises. She initially had some difficulty with sit to stand from chair but much improved with vc's to scoot to edge and lean forward when standing. Pt. returned to bedside chair post session , daughter present, call light in reach and all needs met. PT Test Car Driver Goals Test Car Driver Goals PT Test Car Driver Goals Time Frame: Apr 25, 2017 Transfers (B,C,W/C) (FIM): 5 Sit to Lying (QC): 4 Lying-Sitting on Side/Bed(QC): 4 Sit to Stand (QC): 4 Rollin Chair/[id number]-[id number] Xfer(QC): 4 Gait (FIM): 5 Distance: 300' Walk 50ft with 2 Turns (QC): 4 Walk 150 ft (QC): 4 Gait Level of Assist: 5 Gait Assistive Device: FWW PT Plan Treatment/Plan Treatment Plan: Continue Plan of Care Treatment Plan: Bed Mobility, Education, Functional Activity Yeimy, Functional Strength, Gait, Safety, Therapeutic Exercise, Transfers Treatment Duration: Apr 25, 2017 Frequency: 6 times per week Estimated Hrs Per Day: .25 hour per day (15-30 min) Patient and/or Family Agrees t: Yes Time/GCodes Time In: 903 Time Out: 0928 Total Billed Treatment Time: 25 Total Billed Treatment 1, Ex 10', GT 15' HELENA STOVER PT Apr 19, 2017 09:57
[2017-04-19] MEDS: SENNA W/DOCUSATE (SENOKOT S) TABLET PO SCH ×2 (10:07→20:08)
[2017-04-19] MEDS: LATANOPROST 0.005% (XALATAN) OPHTH SOLN 2.5 ML OU SCH (20:08)
[2017-04-20] VITALS (8 sets, daily range): BP systolic 128–197; BP diastolic 63–90
[2017-04-20] MEDS: ACETAMINOPHEN 500 MG TAB (TYLENOL) PO PRN ×2 (03:29→21:45)
[2017-04-20] MEDS: hydrALAZINE (APRESOLINE) 25 MG TAB PO SCH ×4 (03:29→21:45)
[2017-04-20] MEDS: TROSPIUM 20 MG (SANCTURA) TAB PO SCH ×2 (05:51→15:59)
[2017-04-20] MEDS: CATHETER FLUSH 10 ML SYR IV SCH ×3 (05:51→22:00)
[2017-04-20] MEDS: RT-ALBUTEROL SULF 2.5 MG/3 ML PRE-MIX VIAL IH SCH (07:11)
[2017-04-20] MEDS: cefTRIAXone INJECTION 1,000 MG in NS (IVPB) 50 ML IV SCH (07:56)
[2017-04-20] MEDS: CLOPIDOGREL 75 MG (PLAVIX) TABLET PO SCH (07:56)
[2017-04-20] MEDS: BRIMONIDINE 0.2% (ALPHAGAN) OPHTH SOLN 5 ML BTL OU SCH ×2 (07:57→20:38)
[2017-04-20] MEDS: lisINopril 20 MG (ZESTRIL) TAB PO SCH (07:57)
[2017-04-20] MEDS: ARTIFICAL TEARS 0.4 ML UNIT DOSE (REFRESH PLUS) OS SCH ×2 (07:58→20:37)
[2017-04-20] MEDS: TIMOLOL MALEATE 0.5% 5 ML (TIMOPTIC) BTL OU SCH ×2 (07:58→20:39)
[2017-04-20] MEDS: SENNA W/DOCUSATE (SENOKOT S) TABLET PO SCH ×2 (08:05→20:39)
[2017-04-20] MEDS: ENOXAPARIN 40 MG/0.4 ML (LOVENOX) SYR SC SCH (09:43)
[2017-04-20] MEDS ORDERED: RT-ALBUTEROL SULF 2.5 MG/3 ML PRE-MIX VIAL IH PRN (11:45)
[2017-04-20] MEDS ORDERED: VITAMIN D2 50,000 UNITS (1.25 MG) CAP PO SCH (12:15)
[2017-04-20] MEDS: NYSTATIN ORAL SUSP 5 ML UDC PO SCH ×2 (12:35→18:13)
[2017-04-20] MEDS: LATANOPROST 0.005% (XALATAN) OPHTH SOLN 2.5 ML OU SCH (20:39)
[2017-04-21] MEDS: NYSTATIN ORAL SUSP 5 ML UDC PO SCH ×5 (00:04→23:46)
[2017-04-21 04:05] VITALS: BP 171/81
[2017-04-21] MEDS: hydrALAZINE (APRESOLINE) 25 MG TAB PO SCH ×4 (04:15→22:39)
[2017-04-21] MEDS: TROSPIUM 20 MG (SANCTURA) TAB PO SCH ×2 (06:26→17:22)
[2017-04-21] MEDS: CATHETER FLUSH 10 ML SYR IV SCH ×3 (06:26→22:39)
[2017-04-21 08:00] VITALS: BP 189/74
--- NOTE | 2017-04-21 08:14 | Progress Note (SOAP) ---
Subjective Date Seen by Provider: Apr 21, 2017 Time Seen by Provider: 08:20 Subjective/Events-last exam PT REPORTS THAT SHE IS FEELING BETTER, DENIES HEADACHE. SHE REPORTS THAT SHE HAS NO ABDOMINAL PAIN. SHE DENIES NAUSEA. HER DAUGHTER REPORTS STILL HAVING ISSUES WITH SWALLOWING. Review of Systems General: Fatigue HEENT: No Head Aches Pulmonary: No Dyspnea, Cough Cardiovascular: No: Chest Pain Gastrointestinal: No: Nausea Neurological: Confusion, Weakness Objective Exam Vital Signs Date Time Temp Pulse Resp B/P (MAP) Pulse Ox O2 Delivery O2 Flow Rate FiO2 04/21/17 04:05 98.4 57 20 171/81 94 Nasal Cannula 2.00 04/21/17 01:00 57 04/20/17 23:35 98.1 59 18 137/76 95 Room Air 04/20/17 21:58 Room Air 04/20/17 20:20 Room Air 04/20/17 20:00 99.3 64 22 194/90 92 Room Air 04/20/17 19:00 64 04/20/17 16:00 99.3 66 22 178/77 92 Room Air 04/20/17 13:00 62 04/20/17 12:00 98.6 53 20 128/63 94 Room Air 04/20/17 11:34 52 95 21 I & O 04/21/17 06:59 Intake Total 1375 ml Output Total 1975 ml Balance -600 ml Capillary Refill : General Appearance: No Apparent Distress, WD/WN HEENT: PERRL/EOMI, Pharynx Normal Neck: Full Range of Motion, Supple Respiratory: Chest Non Tender, Lungs Clear, Normal Breath Sounds Cardiovascular: Regular Rate, Rhythm Gastrointestinal: normal bowel sounds, non tender, soft, no organomegaly Extremity: No Pedal Edema Neurologic/Psychiatric: Alert, Other (ORIENTED TO PERSON, NOT TO PLACE OR TIME) Assessment/Plan Assessment/Plan Assess & Plan/Chief Complaint HYPERTENSIVE URGENCY URINARY TRACT INFECTION PNEUMONIA WEAKNESS HEADACHE DEPRESSION ANXIETY HYPERTENSIVE URGENCY - ORAL ANTIHYPERTENSIVES - MONITOR SYMPTOMS OF HYPERTENSION ON HYDRALAZINE TO 50MG QID URINARY TRACT INFECTION - PNEUMONIA - RESOLVED. WEAKNESS - PHYSICAL THERAPY STARTED ON 04/15/17 HEADACHE - IMPROVED AFTER TYLENOL AND HYPERTENSIVE CONTROL. DEPRESSION - RESTARTED SSRI - PT TAKES LEXAPRO AT HOME, SWITCHED TO HOSPITAL FORMULARY - CELEXA. ANXIETY - ATIVAN PRN IN HOSPITAL. GI PROPHYLAXIS - PEPCID DVT PROPHYLAXIS - STARTED LOVENOX AND SCD'S JOYCE BARNES MD Apr 21, 2017 08:14
[2017-04-21] MEDS: SENNA W/DOCUSATE (SENOKOT S) TABLET PO SCH ×2 (09:01→20:13)
[2017-04-21] MEDS: CLOPIDOGREL 75 MG (PLAVIX) TABLET PO SCH (09:12)
[2017-04-21] MEDS: lisINopril 20 MG (ZESTRIL) TAB PO SCH (09:12)
[2017-04-21] MEDS: ENOXAPARIN 40 MG/0.4 ML (LOVENOX) SYR SC SCH (09:12)
[2017-04-21] MEDS: TIMOLOL MALEATE 0.5% 5 ML (TIMOPTIC) BTL OU SCH ×2 (09:13→20:12)
[2017-04-21] MEDS: ARTIFICAL TEARS 0.4 ML UNIT DOSE (REFRESH PLUS) OS SCH ×2 (09:13→20:13)
[2017-04-21] MEDS: BRIMONIDINE 0.2% (ALPHAGAN) OPHTH SOLN 5 ML BTL OU SCH ×2 (09:13→20:12)
[2017-04-21] MEDS: cefTRIAXone INJECTION 1,000 MG in NS (IVPB) 50 ML IV SCH (09:13)
--- NOTE | 2017-04-21 11:07 | ST Mod Barium Swallow ---
Speech Evaluation-General Medical Diagnosis Malignant Hypertension, UTI Onset Date: Apr 14, 2017 Therapy Diagnosis Therapy Diagnosis: Moderate to Severe Pharyngeal Dysphagia Precautions Precautions: Aspiration Precautions/Isolations: Fall Prevention Referral Referring Physician: Dr. Xuan Negrete Reason for Referral: Evaluation/Treatment Modified Barium Swallow Evaluation Medical History Pertinent Medical History: Arthritis, Dementia, HTN Reviewed History: Yes Social History Current Living Status: Children (daughters) Speech Mod Barium Swallow Prior Level of Function Prior to hospitalization, the patient's family reported the patient frequently coughed and choked on all consistencies intermittently. The signs/symptoms of aspiration fluctuate daily, however, appear to be progressively worsening. At this time, the patient is on a mechanical altered (upgraded by the patient's primary team) diet with thin liquids. The patient reports a persistent globus sensation which she localizes to the laryngeal region. CXR: 04/21/2017: Findings are consistent with COPD with continued basilar atelectasis and/or scarring. Oral Motor Skills Dentition Natural Dentures: Full Lingual Protrusion: Normal Lingual ROM: Normal Lingual Strength: Normal Velum: Normal Volitional Dry Swallow: Yes Voluntary Cough: Yes Can Clear Throat Volitionally: Yes Textures-Lateral View Lateral View Food Presentation: Thin Liquid via Spoon, Thin Liquid via Straw, Honey Liquid via Spoon Oral Phase Labial Closure: No Impairment (WFL) Bolus Formation Pooling L/R: No Impairment (WFL) Bolus Formation Placement: No Impairment (WFL) A/P Lingual Propulsion: Mild Impairment (The patient demonstrated difficulty triggering the pharyngeal swallow, displaying several "tongue pumping" motions to move the bolus material posterior in the oral cavity.) Lingual Movement: No Impairment (WFL) Oral Phase Residue: Minimal Impairment Pharyngeal Phase Swallow Response: Mild Impairment (The pharyngeal onset of the swallow was initiated at the laryngeal surface of the epiglottis with all consistencies tested. ) Base of Tongue: Minimal Impairment Epiglottic Movement: No Impairment (WFL) Laryngeal Elevation: Mild Impairment Vallecular Residue: Moderate Pharyngeal Wall Residue: Mild Piriform Sinus Residue: Moderate Laryngeal Penetration: Mild (Thin Liquid, Honey-Thick Liquid) Aspiration Observations: None Other Pharyngeal Observations: The patient initiated the pharyngeal swallow as bolus material reached the laryngeal surface of the epiglottis. Cricopharyngeal prominence was noted, which appeared to obstruct bolus flow into the proximal esophagus. Due to the obstruction, the pressure appeared to dilate the pyriform sinuses, filling the pyriform sinuses with bolus material. During the swallow, deep laryngeal penetration (mild) was noted with thin liquid consistencies. Aspiration was not noted. The patient demonstrated a throat clear in response to the penetrated material, which was effective at clearing the material from the airway. Additionally, the patient demonstrated trace laryngeal penetration with honey-thick liquid (teaspoon) during the swallow. 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 The distension of the pyriform sinuses allows bolus material to moderately pool in the this region, resulting in spillover of contents into the laryngeal vestibule (deep laryngeal penetration). The patient is aware of the laryngeal penetration and demonstrates a throat clear to remove bolus material from the proximal airway. The patient displays moderate oropharyngeal dysphagia characterized by reduced lingual coordination, decreased base of tongue retraction, and reduced pharyngeal contraction. Recommendations: 1. Consult ENT for possible transnasal esophagoscopy (TNE) for direct visualization of the cricopharyngeus. 2. Speech pathology recommends a thin liquid diet and defers dietary consistency upgrades to ENT or primary care physician. 3. As the patient's dysphagia is not secondary to poor pharyngeal strength or coordination, speech pathology will sign off and defer treatment to primary care team at this time. Speech Short Term Goals Short Term Goals Short Term Goals 1. The patient will demonstrate swallowing strategies with 90% accuracy with moderate clinician verbal cueing. Time Frame-STG: Five Days Speech Retirement Goals Retirement Goals 1. The patient will tolerate the least restrictive diet without signs/symptoms of aspiration or laryngeal penetration. 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 Frequency: 4 times per week Estimated Hrs Per Day: .25 hour per day Rehab Potential: Fair Safety Risks/Education Teaching Recipient: Patient (Patient's RN) Teaching Methods: Handout, Discussion, Audiovisual Response to Teaching: Verbalize Understanding Education Topics Provided: Results, Recommendations, Plan of Care (Still Images in Paper Chart). Time Speech Therapy Time In: 11:05 Speech Therapy Time Out: 11:35 Total Billed Time: 30 Billed Treatment Time 1, MILDRED MARY CHAMBERS Apr 21, 2017 11:07
--- NOTE | 2017-04-21 11:30 | Diagnostic Imaging Report ---
INDICATION: Cough. PA and lateral views of the chest are obtained. Comparison is made study of 04/16/2017. FINDINGS: Overall heart size and pulmonary vascularity are within normal limits. There is air trapping in both lungs with linear atelectasis and/or scarring in the lung bases. Advanced degenerative changes are seen in the shoulder joints. There is no pneumothorax or significant pleural fluid. IMPRESSION: Findings are consistent with COPD with continued basilar atelectasis and/or scarring similar to previous exam. Dictated by: Dictated on workstation # [id number]
--- NOTE | 2017-04-21 11:59 | Physical Therapy Daily Note ---
PT Daily Note-Current Subjective Patient agrees to PT. Family present. Pain Numeric Pain Scale: 0-No Pain Location: No Pain Reported Mental Status Patient Orientation: Confused Transfers Functional Pierce Measure 0=Not Assessed/NA 4=Minimal Assistance 1=Total Assistance 5=Supervision or Setup 2=Maximal Assistance 6=Modified Pierce 3=Moderate Assistance 7=Complete IndependenceIRFPAI Quality Coding Scale 6 Independent with activity with or without an assistive device 5 Patient requires set up or clean up by helper. Patient completes activity by themselves 4 Supervision or touching assist (CGA). [place] provide cues , steadying assist 3 The helper provides less than half the effort to complete the activity 2 The helper provides more than half the effort to complete the activity 1 Dependent. The helper does all the effort to complete an activity 7 Patient refused to complete or attempt activity 9 The patient did not perform the activity before the current illness or injury 88 Not attempted due to Medical conditions or safety concerns Transfers (B, C, W/C) (FIM): 5 Scootin Sit to/from Stand: 5 Sit to Stand (QC): 5 Gait Training Does the Patient Walk?: Yes Gait (FIM): 5 Distance (FIM): 3=150 ft Distance: 250' Walk 50 ft with 2 Turns(QC): 5 Walk 150 ft (QC): 5 Gait Level of Assist: 5 Gait Persons Needed: 1 Gait Assistive Device: FWW safe and functional/trunk flexed posture with FWW Assessment Patient and family perform exercises PRN per family report. Patient is up in chair with lunch in situ. PT Longterm Goals Longterm Goals PT Showplace Manager Goals Time Frame: Apr 25, 2017 Transfers (B,C,W/C) (FIM): 5 Sit to Lying (QC): 4 Lying-Sitting on Side/Bed(QC): 4 Sit to Stand (QC): 4 Rollin Chair/[id number]-Xbcbb Xfer(QC): 4 Gait (FIM): 5 Distance: 300' Walk 50ft with 2 Turns (QC): 4 Walk 150 ft (QC): 4 Gait Level of Assist: 5 Gait Assistive Device: FWW PT Plan Treatment/Plan Treatment Plan: Continue Plan of Care Treatment Plan: Bed Mobility, Education, Functional Activity Yeimy, Functional Strength, Gait, Safety, Therapeutic Exercise, Transfers Treatment Duration: Apr 25, 2017 Frequency: 6 times per week Estimated Hrs Per Day: .25 hour per day (15-30 min) Patient and/or Family Agrees t: Yes Time/GCodes Time In: 1131 Time Out: 1146 Total Billed Treatment Time: 15 Total Billed Treatment 1 visit GT 15 min CECILLE HALL PT Apr 21, 2017 11:59
[2017-04-21 12:00] VITALS: BP 116/69
--- NOTE | 2017-04-21 12:09 | Diagnostic Imaging Report ---
EXAMINATION: Modified barium swallow. INDICATION: Dysphagia Different consistencies of fluid and food was given mixed with barium and swallowing was visualized under fluoroscopy. FLUOROSCOPY TIME: 1 minute and 51 seconds. FINDINGS: No aspiration seen. There is residual barium seen in the hypopharynx and hypopharyngeal dilatation. This is probably reflection of a functional problem in the hypopharynx and/or the upper esophageal sphincter. IMPRESSION: No aspiration seen. Please refer to speech therapist's report for additional details . Dictated by: Dictated on workstation # [id number]
--- NOTE | 2017-04-21 14:04 | Occ Therapy Progress Note ---
Therapy Progress Note 1400 Patient asleep, up in chair. Family requested to not wake her, saying "She'll be pretty groggy and I don't know that she'll do anything." MACIEJ SINGH OT Apr 21, 2017 14:04
[2017-04-21 16:15] VITALS: BP 169/78
[2017-04-21 19:25] VITALS: BP 176/99
[2017-04-21] MEDS: LATANOPROST 0.005% (XALATAN) OPHTH SOLN 2.5 ML OU SCH (20:12)
[2017-04-21 23:55] VITALS: BP 124/74
[2017-04-22 03:40] VITALS: BP 169/74
[2017-04-22] MEDS: hydrALAZINE (APRESOLINE) 25 MG TAB PO SCH ×2 (03:46→08:23)
[2017-04-22] MEDS: NYSTATIN ORAL SUSP 5 ML UDC PO SCH (05:04)
[2017-04-22] MEDS: TROSPIUM 20 MG (SANCTURA) TAB PO SCH (05:04)
[2017-04-22] MEDS: CATHETER FLUSH 10 ML SYR IV SCH (05:04)
[2017-04-22 05:16] LABS: MEAN PLATELET VOLUME 9.4 FL (7.4-10.4); RED BLOOD COUNT 4.89 10^6/uL (4.35-5.85); RED CELL DISTRIBUTION WIDTH 14.6 % (10.0-14.5); WHITE BLOOD COUNT 4.4 10^3/uL (4.3-11.0)
[2017-04-22 05:35] LABS: ALANINE AMINOTRANSFERASE 31 U/L (0-55); ALBUMIN 3.4 GM/DL (3.2-4.5); ANION GAP 8 MMOL/L (5-14); ASPARTATE AMINO TRANSFERASE 33 U/L (5-34); BILIRUBIN,TOTAL 0.7 MG/DL (0.1-1.0); BLOOD UREA NITROGEN 6 MG/DL (7-18); BUN/CREATININE RATIO 10; CALCIUM 8.3 MG/DL (8.5-10.1); CARBON DIOXIDE 25 MMOL/L (21-32); CHLORIDE 96 MMOL/L (98-107); CREATININE SERUM 0.61 MG/DL (0.60-1.30); GFR ESTIMATED > 60; GLUCOSE 93 MG/DL (70-105); POTASSIUM 4.1 MMOL/L (3.6-5.0); SODIUM 129 MMOL/L (135-145); TOTAL PROTEIN 6.4 GM/DL (6.4-8.2)
[2017-04-22 08:00] VITALS: BP 175/70
[2017-04-22] MEDS: ENOXAPARIN 40 MG/0.4 ML (LOVENOX) SYR SC SCH (08:23)
[2017-04-22] MEDS: CLOPIDOGREL 75 MG (PLAVIX) TABLET PO SCH (08:23)
[2017-04-22] MEDS: lisINopril 20 MG (ZESTRIL) TAB PO SCH (08:23)
[2017-04-22] MEDS: SENNA W/DOCUSATE (SENOKOT S) TABLET PO SCH (08:23)
[2017-04-22] MEDS: ARTIFICAL TEARS 0.4 ML UNIT DOSE (REFRESH PLUS) OS SCH (08:23)
[2017-04-22] MEDS: TIMOLOL MALEATE 0.5% 5 ML (TIMOPTIC) BTL OU SCH (08:24)
[2017-04-22] MEDS: BRIMONIDINE 0.2% (ALPHAGAN) OPHTH SOLN 5 ML BTL OU SCH (08:24)
--- NOTE | 2017-04-22 09:25 | Discharge Summary ---
Diagnosis/Chief Complaint Date of Admission Apr 18, 2017 at 08:43 Date of Discharge Discharge Summary Discharge Physical Examination Allergies: Coded Allergies: No Known Drug Allergies (Unverified , 01/18/14) Vitals & I&Os Vital Signs Date Time Temp Pulse Resp B/P (MAP) Pulse Ox O2 Delivery O2 Flow Rate FiO2 04/22/17 08:06 95 Nasal Cannula 2.00 04/22/17 03:40 98.1 60 18 169/74 04/20/17 11:34 21 Hospital Course Pending Labs Laboratory Tests 04/22/17 04:50: White Blood Count 4.4, Red Blood Count 4.89, Hemoglobin 13.9, Hematocrit 44, Mean Corpuscular Volume 90, Mean Corpuscular Hemoglobin 28, Mean Corpuscular Hemoglobin Concent 32, Red Cell Distribution Width 14.6, Platelet Count 249, Mean Platelet Volume 9.4, Sodium Level 129, Potassium Level 4.1, Chloride Level 96, Carbon Dioxide Level 25, Anion Gap 8, Blood Urea Nitrogen 6, Creatinine 0.61 , Estimat Glomerular Filtration Rate > 60, BUN/Creatinine Ratio 10, Glucose Level 93, Calcium Level 8.3, Total Bilirubin 0.7, Aspartate Amino Transf (AST/ SGOT) 33, Alanine Aminotransferase (ALT/SGPT) 31, Alkaline Phosphatase 126, Total Protein 6.4, Albumin 3.4 Discharge Instructions to patient/family Please see electonic discharge instructions given to patient. Discharge Medications Reviewed and agree with Discharge Medication list on patient's Discharge Instruction sheet JOYCE BARNES MD Apr 22, 2017 09:25
[2017-04-22] MEDS ORDERED: ALPR0.254 PO (09:28)
[2017-04-22] MEDS ORDERED: LISI-552 PO (09:28)
[2017-04-22] MEDS ORDERED: HYDR-3923 PO (09:28)
[2017-04-22] MEDS ORDERED: NYST1000 PO (09:28)
--- NOTE | 2017-04-22 09:31 | D/C HH Face to Face Order ---
D/C Face to Face Orders Instructions for Patient Patient Instructions/FollowUp: out of bed with assistance, increase activity slowly Physician to follow Patient: lea Discharge Diet for Home: other diet (resume home diet) Patient Problems: uti, hypertension, weakness, dysphagia Patient Data-Allergies,Ht & Wt Patient Allergies: Coded Allergies: No Known Drug Allergies (Unverified , 01/18/14) Height (Feet): 5 Height (Inches): 5.00 Weight (Pounds): 146 Weight (Ounces): 8.0 Home Health Need/Face to Face Date of Face to Face: Apr 22, 2017 Clinical Findings: Generalized weakness and fatigue, Muscle weakness, Unsteady gait I have seen Pt [id number]: Yes Discharged To: Home Diagnosis/Conditions: uti, hypertension, weakness, confusion, osteoarthritis Problems/Diagnosis/Condition: Patient is Homebound due to: CognItive deficits, Mamadou fall risk due to instabilty, Muscle weakness Homebound Status Due to the above stated illness, injury or surgical procedure (medical condition or diagnosis) and associated clinical findings, the patient is homebound because of his/her inability to leave home except with aid of a supportive device and/or person AND leaving the home requires a considerable and taxing effort or is medically contraindicated. Pt req the following assistanc: Aid of another person, Walker Home Health Nursing Orders Home Health Services Order: Nursing Services, Skin Care Technician-Evaluate & Treat, Physical Therapy-Evaluate & Treat Home Health Infusion Therapy Line Start Date: Apr 19, 2017 Site Location: Hand Therapy Orders Therapy Specific Orders: Eval assistive deivces, Teach strategies/cognitive deficits, Teach enviro modifications/safety, Eval & treat dysphagia, Gait training, Increase strength/endurance, Provider maintenance therapy, Restore ROM Certify Stmt I certify that this patient is under my care and that I, a nurse practitioner or a physician; a advertising assistant working with me, had a face to face encounter that - meets the physician face to face encounter requirements with this patient as dated. JOYCE BARNES MD Apr 22, 2017 09:31
--- NOTE | 2017-04-22 09:42 | Therapy Team Discharge Summary ---
Therapy Discharge Summary Discharge Recommendations Date of Discharge Therapy D/C Recommendations: Home w/ Family Support Physical Therapy Patient to dismiss on this date to home with family support at [facility]. Patient progressed with treatment plan and is compliant with HEP. Patient is SBA with all gross motor skills and ambulates with FWW x 250' with Good balance. All functional goals attained. PT Recreational Sports Director Goals Recreational Sports Director Goals PT Recreational Sports Director Goals Time Frame: Apr 25, 2017 Transfers (B,C,W/C) (FIM): 5 (met 04/22/17) Sit to Lying (QC): 4 (met 04/22/17) Lying-Sitting on Side/Bed(QC): 4 (met 04/22/17) Sit to Stand (QC): 4 (met ) Rollin (met 04/22/17) Chair/Nks-zf-Hxcxm Xfer(QC): 4 (met 04/22/17) Gait (FIM): 5 (met 04/22/17) Distance: 300' Walk 50ft with 2 Turns (QC): 4 (met) Walk 150 ft (QC): 4 (met 04/22/17) Gait Level of Assist: 5 (met 04/22/17) Gait Assistive Device: FWW OT Fpc Goals Recreational Sports Director Goals Time Frame: May 02, 2017 Eating (FIM): 6 Eating (QC): 6 Groomin Oral Hygiene (QC): 5 Upper Body Dressing(FIM): 5 Lower Body Dressing(FIM): 5 Toileting(FIM): 5 Toileting Hygiene (QC): 5 Toilet/Commode Transfer(FIM): 5 Toilet/Commode Transfer (QC): 5 Additional Goals: 1-Demonstrate ADL Tasks, 2-Verbalize Understanding, 3- ImproveStrength/Yeimy 1=Demonstrate adherence to instructed precautions during ADL tasks. 2=Patient will verbalize/demonstrate understanding of assistive devices/ modifications for ADL. 3=Patient will improve strength/tolerance for activity to enable patient to perform ADL's. Speech Recreational Sports Director Goals Recreational Sports Director Goals 1. The patient will tolerate the least restrictive diet without signs/symptoms of aspiration or laryngeal penetration. Time Frame: One Week CECILLE HALL PT Apr 22, 2017 09:42
--- NOTE | 2017-04-22 09:55 | Therapy Team Discharge Summary ---
Therapy Discharge Summary Discharge Recommendations Date of Discharge 04/22/2017 Therapy D/C Recommendations: Home w/ Family Support Speech-Language Pathology The patient was recently admitted to [facility] with a diagnosis of an UTI and malignant hypertension. Throughout the patient's stay, she reported signs/symptoms of aspiration with all consistencies she consumed at home ( intermittently). A modified barium swallow evaluation was completed and revealed possible hypertonicity of the upper esophageal sphincter. A referral to ENT was provided, as well as, recommendations for a full liquid diet. Speech pathology will sign off with patient at this time. PT Usp Goals Usp Goals PT Usp Goals Time Frame: Apr 25, 2017 Transfers (B,C,W/C) (FIM): 5 (met 04/22/17) Sit to Lying (QC): 4 (met 04/22/17) Lying-Sitting on Side/Bed(QC): 4 (met 04/22/17) Sit to Stand (QC): 4 (met ) Rollin (met 04/22/17) Chair/Fsf-he-Hocrm Xfer(QC): 4 (met 04/22/17) Gait (FIM): 5 (met 04/22/17) Distance: 300' Walk 50ft with 2 Turns (QC): 4 (met) Walk 150 ft (QC): 4 (met 04/22/17) Gait Level of Assist: 5 (met 04/22/17) Gait Assistive Device: FWW OT Usp Goals Broth Setter Goals Time Frame: May 02, 2017 Eating (FIM): 6 Eating (QC): 6 Groomin Oral Hygiene (QC): 5 Upper Body Dressing(FIM): 5 Lower Body Dressing(FIM): 5 Toileting(FIM): 5 Toileting Hygiene (QC): 5 Toilet/Commode Transfer(FIM): 5 Toilet/Commode Transfer (QC): 5 Additional Goals: 1-Demonstrate ADL Tasks, 2-Verbalize Understanding, 3- ImproveStrength/Yeimy 1=Demonstrate adherence to instructed precautions during ADL tasks. 2=Patient will verbalize/demonstrate understanding of assistive devices/ modifications for ADL. 3=Patient will improve strength/tolerance for activity to enable patient to perform ADL's. Speech Usp Goals Usp Goals 1. The patient will tolerate the least restrictive diet without signs/symptoms of aspiration or laryngeal penetration. Time Frame: One Week MARY CHAMBERS Apr 22, 2017 09:55
--- NOTE | 2017-04-22 11:47 | Therapy Team Discharge Summary ---
Therapy Discharge Summary Discharge Recommendations Date of Discharge 04-22-17 Therapy D/C Recommendations: Home w/ Family Support, Occupational Therapy Home Care Occupational Therapy Pt. has been seen briefly to address daily tasks for safe return home. At this present time, pt. still requires mod/max assistance with transfers and LE dressing, at least with therapy. Family is taking pt. home to assist her there. OT encouraged pt. to shower this morning. Pt. states that she showered yesterday. Declines doing it today. Daughter in room and states that pt. does not have clothing here yet, and that they will likely put on a house robe for her to discharge. No goals met at this time due to short stay. However, family feels confident to assist her at home. Pt. would benefit from skilled treatment to increase overall strength and safety within her home. Pt. to discharge today. 1, visit 0910 Discharge today. PT Residential Appliance Repair Technician Goals Residential Appliance Repair Technician Goals PT Residential Appliance Repair Technician Goals Time Frame: Apr 25, 2017 Transfers (B,C,W/C) (FIM): 5 (met 04/22/17) Sit to Lying (QC): 4 (met 04/22/17) Lying-Sitting on Side/Bed(QC): 4 (met 04/22/17) Sit to Stand (QC): 4 (met ) Rollin (met 04/22/17) Chair/Dyc-do-Gotas Xfer(QC): 4 (met 04/22/17) Gait (FIM): 5 (met 04/22/17) Distance: 300' Walk 50ft with 2 Turns (QC): 4 (met) Walk 150 ft (QC): 4 (met 04/22/17) Gait Level of Assist: 5 (met 04/22/17) Gait Assistive Device: FWW OT Residential Appliance Repair Technician Goals Nursing Home Goals Time Frame: May 02, 2017 Eating (FIM): 6 (met) Eating (QC): 6 (met) Groomin (not met) Oral Hygiene (QC): 5 Upper Body Dressing(FIM): 5 (not met) Lower Body Dressing(FIM): 5 (not met) Toileting(FIM): 5 (not met) Toileting Hygiene (QC): 5 (not met) Toilet/Commode Transfer(FIM): 5 Toilet/Commode Transfer (QC): 5 (not met) Additional Goals: 1-Demonstrate ADL Tasks, 2-Verbalize Understanding, 3- ImproveStrength/Yeimy 1=Demonstrate adherence to instructed precautions during ADL tasks. 2=Patient will verbalize/demonstrate understanding of assistive devices/ modifications for ADL. 3=Patient will improve strength/tolerance for activity to enable patient to perform ADL's. Speech Nursing Home Goals Nursing Home Goals 1. The patient will tolerate the least restrictive diet without signs/symptoms of aspiration or laryngeal penetration. Time Frame: One Week MERRY LEES OT Apr 22, 2017 11:47
[2017-04-22 12:00] VITALS: BP 188/78
== END 2017-04-22 13:55 | disposition home health service (06) | DRG 194 ==
LOC: 4TH 08:43 → ENPENDDIS 04-22 10:30
PROVIDERS: ADMIT Family Medicine; ATTEND Family Medicine
DX: J18.9 Pneumonia, unspecified organism (principal); I16.0 Hypertensive urgency; N39.0 Urinary tract infection, site not specified; F32.9 Major depressive disorder, single episode, unspecified; F41.9 Anxiety disorder, unspecified; R53.1 Weakness; F03.90 Unspecified dementia, unspecified severity, without behavioral disturbance, psychotic disturbance, mood disturbance, and anxiety; Z66 Do not resuscitate; K59.09 Other constipation; H40.9 Unspecified glaucoma; H91.92 Unspecified hearing loss, left ear
CPT/HCPCS: 36415; 71020; 74230; 80053; 85027; 94640; 94760

== ENCOUNTER → 2017-12-15 | Outpatient (CLI) | payer MEDICARE ==
[~2017-12-15] VITALS: Ht 167.6 cm; Wt 67.7 kg
[~2017-12-15] MED LIST changes: +ACET-77 PO; +ALPR0.254 PO; -BRIM5DRO OD; +BRIM5DRO OU; +CALC-6 PO; +CEPH250C PO; +CIPR500T4 PO; +DENOSUMAB 60 MG/1 ML (PROLIA) SQ ONE; +DOCU250C11 PO; +FLUC150T2 PO; +GLUC1CAP37 PO; +HYDR-3923 PO; +LACT1CAP8 PO; +NYST1000 PO; +PROP10DR4 OU; -PROP10DR9 OS; +PROP10DR9 OU
[2017-12-15 13:15] VITALS: BP 128/71
== END ==
LOC: SDC 12:52
PROVIDERS: ATTEND Family Medicine
DX: M81.0 Age-related osteoporosis without current pathological fracture (principal)
CPT/HCPCS: 96372

== ENCOUNTER → 2018-06-15 | Outpatient (CLI) | payer MEDICARE ==
[~2018-06-15] VITALS: Ht 167.6 cm; Wt 67.7 kg
[2018-06-15 13:15] VITALS: BP 163/86
== END ==
LOC: SDC 12:46
PROVIDERS: ATTEND Family Medicine
DX: M81.0 Age-related osteoporosis without current pathological fracture (principal)
CPT/HCPCS: 96372

== ENCOUNTER → 2018-12-14 | Outpatient (CLI) | payer MEDICARE ==
[~2018-12-14] VITALS: Ht 167.6 cm; Wt 67.7 kg
[2018-12-14 13:30] VITALS: BP 111/64
== END ==
LOC: SDC 12:46
PROVIDERS: ATTEND Family Medicine
DX: M81.0 Age-related osteoporosis without current pathological fracture (principal)
CPT/HCPCS: 96372

== ENCOUNTER → 2018-12-21 | Outpatient (CLI) | payer MEDICARE ==
[~2018-12-21] MED LIST changes: -DENOSUMAB 60 MG/1 ML (PROLIA) SQ ONE
--- NOTE | 2018-12-21 13:53 | Diagnostic Imaging Report ---
INDICATION: Cough. TECHNIQUE: Two view chest 12:04 PM CORRELATION STUDY: 10/28/2017, 03/03/2015 FINDINGS: Left-sided dual-chamber pacemaker is present. Heart size enlarged but stable. Tortuous course of thoracic aorta. Nodular density in the right paramediastinal region may reflect the dilated azygos vein. Chronic-appearing change about the lung parenchyma with asymmetric areas of atelectasis about the left lung base. There has been overall improved aeration through the lung stern. Kyphoplasty changes lower thoracic vertebral bodies. Advanced degenerative change about the right shoulder. IMPRESSION: 1. Cardiac enlargement without failure. 2. Chronic change about the lung parenchyma with some atelectasis of the left lung base, however, improved aeration since prior study. 3. There is nodularity in the right paramediastinal region, likely related to the azygos vein. Dictated by: Dictated on workstation # [id number]
== END ==
LOC: RAD 11:43
PROVIDERS: ATTEND Nurse Practitioner Family
DX: J98.11 Atelectasis (principal); I51.7 Cardiomegaly; R91.8 Other nonspecific abnormal finding of lung field; Z98.890 Other specified postprocedural states; Z95.0 Presence of cardiac pacemaker
CPT/HCPCS: 71046

== ENCOUNTER → 2019-06-14 | Outpatient (CLI) | payer MEDICARE ==
[~2019-06-14] MED LIST changes: +DENOSUMAB 60 MG/1 ML (PROLIA) SQ ONE
[2019-06-14 13:20] VITALS: BP 128/96
== END ==
LOC: SDC 12:51
PROVIDERS: ATTEND Family Medicine
DX: M81.0 Age-related osteoporosis without current pathological fracture (principal)
CPT/HCPCS: 96372